=== PATIENT | female | born 1980 | race Caucasian/White ===

== ENCOUNTER 2023-04-24 08:57 | Inpatient (IN) | payer MEDICAID ==
[~2023-04-24] VITALS: Ht 160 cm; Wt 59.0 kg
[2023-04-24 09:00] VITALS: BP 125/74
--- NOTE | 2023-04-24 09:43 | NUR ---
X-Ray at bedside.
[2023-04-24] MEDS ORDERED: MORPHINE SULFATE 4 MG/ML SYR IVP ONE (10:05)
[2023-04-24] MEDS ORDERED: ONDANSETRON 4 MG/2 ML VIAL IVP ONE (10:05)
[2023-04-24 10:11] LABS: BASOPHILS # (AUTO) 0.1 K/uL (0.00-0.22); BASOPHILS % (AUTO) 0.6 % (0.0-2.0); EOSINOPHILS # (AUTO) 0.1 K/uL (0-0.4); EOSINOPHILS % (AUTO) 0.5 % (0.0-4.0); HEMATOCRIT 31.2 % (36-48); HEMOGLOBIN 10.1 g/dL (12.0-16.0); LYMPHOCYTES # (AUTO) 1.9 K/uL (2.5-16.5); LYMPHOCYTES % (AUTO) 15.4 % (20.5-51.1); MEAN CORPUSCULAR HEMOGLOBIN 27 pg (27-31); MEAN CORPUSCULAR HGB CONC 32 g/dL (33-37); MONOCYTES # (AUTO) 0.6 K/uL (0.8-1.0); NEUTROPHILS # (AUTO) 9.6 K/uL (1.8-7.7); NEUTROPHILS % (AUTO) 78.5 % (42.2-75.2); PLATELET COUNT (AUTO) 378 K/uL (140-450); RED CELL DISTRIBUTION WIDTH 16.1 % (11.6-13.7); WHITE BLOOD COUNT (AUTO) 12.2 K/uL (4.8-10.8)
--- NOTE | 2023-04-24 10:30 | NUR ---
Martita villarreal in ED - 04/24/23 at 1455 by MEDDM BIBA BLS TO ER BED 8
[2023-04-24 10:49] LABS: ANION GAP 11.4 (8-16); CARBON DIOXIDE 28.8 mmol/L (21-32); CREATININE 0.6 mg/dL (0.6-1.3); POTASSIUM 4.2 mmol/L (3.5-5.1); TOTAL BILIRUBIN 0.3 mg/dL (0.0-1.0)
[2023-04-24] MEDS ORDERED: NACL 0.9% 1,500 ML IV ONE (11:20)
[2023-04-24] MEDS ORDERED: ONDA4TAB12 PO (11:38)
[2023-04-24] MEDS ORDERED: HYDR25CA32 PO (11:38)
[2023-04-24] MEDS ORDERED: CLIN300C73 PO (11:38)
[2023-04-24] MEDS ORDERED: ESCI5TAB18 PO (11:38)
[2023-04-24] MEDS ORDERED: IBUP-2213 PO (11:38)
[2023-04-24] MEDS ORDERED: ACET-9525 PO (11:38)
[2023-04-24] MEDS ORDERED: cefTRIAXone 1,000 MG VIAL ONE (12:43)
[2023-04-24] MEDS: PIPERACILLIN/TAZOBACTAM 3.375 GM in DEXTROSE 5% 50 ML IV SCH ×2 (13:35→20:59)
[2023-04-24] MEDS ORDERED: ACETAMINOPHEN 325 MG TAB PO PRN (13:45)
[2023-04-24] MEDS ORDERED: ONDANSETRON 4 MG/2 ML VIAL IVP PRN (13:45)
--- NOTE | 2023-04-24 13:53 | NUR ---
PATIENT ARRIVED TO [facility]ST UNIT. PT IS AWAKE, AOX4. ABLE TO VERBALIZE NEEDS. RESPIRATIONS EVEN AND UNLABORED ON RA. SKIN WARM AND DRY. IV ON L F/A 20G, SL. PT ORIENTED TO UNIT, ROOM, RESTROOM AND POLICIES. VS: TEMP 99.8, PULSE 62, BP 114/57, O2 SATURATING AT 99% ON RA. ALL SAFETY PRECAUTIONS IN PLACE. CALL LIGHT WITHIN REACH.
--- NOTE | 2023-04-24 14:32 | NUR ---
Patient will be admitted to care of MD MONTELONGO. Admited to [facility]. Will go to room 126B. Belongings list completed. Report to TEJA COCHRAN.
[2023-04-24 16:00] VITALS: BP 141/64
[2023-04-24] MEDS: MORPHINE SULFATE 2 MG/ML SYR IVP PRN ×2 (16:21→21:18)
--- NOTE | 2023-04-24 19:29 | NUR ---
ENDORSED PT TO CNC OPERATOR NURSE FOR CONTINUITY OF CARE. PT IS STABLE.
--- NOTE | 2023-04-24 19:30 | NUR ---
RECEIVED PATIENT FROM DAY SHIFT NURSE TEJA FOR CONTINUITY OF CARE. PATIENT IS A&O X4. PATIENT IS ON ROOM AIR; BREATHING IS NORMAL WITH SYMMETRICAL RISE AND FALL OF CHEST. IV IS A 20G LFA, RUNNING NS 3ML TKO. PATIENT IS SLEEPING, LYING SUPINE. BED IS IN LOWEST POSITION, WHEELS LOCKED, CALL LIGHT IN PLACE. WILL CONTINUE TO OBSERVE PATIENT.
[2023-04-24 20:00] VITALS: BP 133/72
[2023-04-24] MEDS ORDERED: PIPERACILLIN/TAZOBACTAM 3.375 GM VIAL IV ONE (20:51)
--- NOTE | 2023-04-24 21:32 | NUR ---
ADMINISTERED 2100 IVPB TO PATIENT. MEDICATION ADMINISTERED SUCCESSFULLY WITHOUT ANY ISSUES WITH IV. PATIENT COMPLAINED OF 10/10 RIGHT LOWER LEG PAIN. CHECKED THE PATIENT'S LEG, NO VISIBLE SIGNS OF SWELLING OR REDNESS WERE PRESENT. PATIENT STATED PAIN WAS A 10/10 AND ASKED IF IT WAS TIME FOR ANOTHER DOSE OF PAIN MEDICATION. CHECKED PATIENT'S VITALS AND CHART; MORPHINE WAS APPROPRIATE TO GIVE. ADMINISTERED MEDICATION TO PATIENT. MEDICATION ADMINISTRATION WAS SUCCESSFUL WITH NO ISSUES WITH IV. PATIENT THANKED ME LAID BACK DOWN TO GO TO SLEEP. EMPTIED PATIENT'S COMMODE, WHICH CONTAINED URINE BUT NO BM, AND CLEANED BED ALTMAN. INSERTED NEW LINER INTO BEDPAN ON COMMODE. TURNED OUT LIGHT ON MY WAY OUT. WILL CONTINUE TO OBSERVE PATIENT.
--- NOTE | 2023-04-25 00:30 | NUR ---
PATIENT IS CURRENTLY SLEEPING. BREATHING IS NORMAL WITH SYMMETRICAL RISE AND FALL OF CHEST. WILL CONTINUE TO OBSERVE PATIENT.
[2023-04-25] MEDS: MORPHINE SULFATE 2 MG/ML SYR IVP PRN ×4 (03:26→20:13)
[2023-04-25 04:00] VITALS: BP 122/79
--- NOTE | 2023-04-25 04:07 | NUR ---
PATIENT WOKE UP AND REQUESTED PAIN MEDICATION FOR 10/10 RIGHT LOWER LEG PAIN. ASSESSED PATIENT'S VITALS AND CHART; MORPHINE WAS APPROPRIATE TO ADMINISTER. ADMINISTRATION OF MEDICATION WAS SUCCESSFUL WITH NO ISSUES WITH IV. PATIENT FELL BACK TO SLEEP A FEW MINUTES LATER. BREATHING IS NORMAL WITH SYMMETRICAL RISE AND FALL OF CHEST. WILL CONTINUE TO OBSERVE PATIENT.
--- NOTE | 2023-04-25 04:46 | NUR ---
WAS INFORMED BY POULTRY FARM WORKER THAT PATIENT REFUSED LABS STATING SHE WANTED HER BLOOD DRAWN LATER. LABS WERE NOT DRAWN FOR PATIENT.
[2023-04-25] MEDS ORDERED: PIPERACILLIN/TAZOBACTAM 3.375 GM VIAL IV ONE (04:57)
[2023-04-25] MEDS: PIPERACILLIN/TAZOBACTAM 3.375 GM in DEXTROSE 5% 50 ML IV SCH ×3 (05:05→20:13)
--- NOTE | 2023-04-25 06:18 | NUR ---
PATIENT IS SLEEPING. BREATHING IS NORMAL WITH SYMMETRICAL RISE AND FALL OF CHEST. WILL CONTINUE TO OBSERVE PATIENT.
--- NOTE | 2023-04-25 07:21 | NUR ---
ENDORSED TO DAY SHIFT NURSE TEJA FOR CONTINUITY OF CARE. PATIENT IS STABLE.
--- NOTE | 2023-04-25 08:00 | NUR ---
Patient's Plan of Care was discussed and reviewed with WIRE MILL OPERATOR:
[2023-04-25] MEDS: ESCITALOPRAM 20 MG TAB PO SCH (08:31)
[2023-04-25] MEDS: ENOXAPARIN 40 MG/0.4 ML SYR SUBQ SCH (08:33)
[2023-04-25] MEDS ORDERED: DEXTROSE 50% 50 ML SYR IVP PRN (08:45)
[2023-04-25] MEDS ORDERED: NON-FORMULARY ITEM (Escitalopram Oxalate (Escitalopram Oxalate) 1 TAB) PO SCH (09:00)
--- NOTE | 2023-04-25 09:21 | NUR ---
PATIENT HAS BEEN SCREENED AND CATEGORIZED MODERATE NUTRITION RISK. PATIENT WILL BE SEEN WITHIN 3-5 DAYS OF ADMISSION. / REVIEWED BY RICHIE ORR RD
[2023-04-25] MEDS: BLOOD GLUCOSE MONITORING 1 DEV DEV FS SCH ×4 (11:10→20:14)
[2023-04-25] MEDS: INSULIN LISPRO SLIDING SCALE 100 UNITS/ML VIAL SUBQ PRN ×2 (11:19→20:26)
[2023-04-25 14:22] LABS: BASOPHILS # (AUTO) 0.1 K/uL (0.00-0.22); BASOPHILS % (AUTO) 0.7 % (0.0-2.0); EOSINOPHILS # (AUTO) 0.1 K/uL (0-0.4); HEMOGLOBIN 10.3 g/dL (12.0-16.0); LYMPHOCYTES % (AUTO) 18.4 % (20.5-51.1); MEAN CORPUSCULAR HEMOGLOBIN 27 pg (27-31); MEAN CORPUSCULAR HGB CONC 33 g/dL (33-37); MEAN CORPUSCULAR VOLUME 81.6 fL (80-94); MONOCYTES # (AUTO) 0.5 K/uL (0.8-1.0); MONOCYTES % (AUTO) 4.9 % (1.7-9.3); NEUTROPHILS # (AUTO) 8.1 K/uL (1.8-7.7); PLATELET COUNT (AUTO) 385 K/uL (140-450); WHITE BLOOD COUNT (AUTO) 10.9 K/uL (4.8-10.8)
[2023-04-25 14:45] LABS: MAGNESIUM 1.9 mg/dL (1.8-2.4); PHOSPHORUS 3.8 mg/dL (2.5-4.9)
[2023-04-25] MEDS ORDERED: ONDANSETRON 4 MG/2 ML VIAL IVP PRN (16:50)
[2023-04-25] MEDS ORDERED: HYDROmorphone 1 MG/ML AMP IVP PRN (16:50)
[2023-04-25] MEDS ORDERED: BUPIVACAINE-MPF 0.5% 30 ML VIAL INJ ONE (17:05)
[2023-04-25] MEDS ORDERED: PROPOFOL 200 MG/20 ML VIAL IV ONE (17:33)
[2023-04-25] MEDS ORDERED: fentaNYL citrate 0.05 MG/ML VIAL ONE (17:33)
[2023-04-25] MEDS ORDERED: ePHEDrine 50 MG/ML VIAL ONE (17:38)
[2023-04-25] MEDS ORDERED: ONDANSETRON 4 MG/2 ML VIAL ONE (17:40)
[2023-04-25] MEDS ORDERED: HYDROGEN PEROXIDE 3% 240 ML BTL TP ONE (17:41)
--- NOTE | 2023-04-25 19:33 | NUR ---
ENDORSED PT TO IMPORT COORDINATOR NURSE FOR CONTINUITY OF CARE.
--- NOTE | 2023-04-25 19:34 | NUR ---
RECEIVED REPORT FROM DAYSCARLOTTA RN FOR CONTINUITY OF CARE. PT JUST GOT BACK FROM SURGERY. PT IS AWAKE AND ALERT. COMPLAINING OF RIGHT FOOT PAIN 10/10. VITAL SIGNS TAKEN AND STABLE. POC DISCUSSED. WILL CONTINUE TO MONITOR THE PT.
[2023-04-25 20:00] VITALS: BP 132/80
--- NOTE | 2023-04-26 | NUR ---
OBSERVED PT. PT IS SLEEPING COMFORTABLY IN BED. NOT IN ANY DISTRESS. BREATHING EVEN AND UNLABORED. WILL CONTINUE TO MONITOR THE PT.
[2023-04-26] MEDS: MORPHINE SULFATE 2 MG/ML SYR IVP PRN ×6 (01:57→23:49)
--- NOTE | 2023-04-26 01:57 | NUR ---
PT CALLED COMPLAINING OF PAIN 10/10 ON RIGHT LOWER LEG. MORPHINE WAS GIVEN. NO OTHER COMPLAINS. PT JUST HAD USED COMMODE WAS CLEANED AND CHANGED. SAFETY MEASURES TAKEN. WILL CONTINUE TO MONITOR THE PT.
[2023-04-26 04:00] VITALS: BP 132/80
--- NOTE | 2023-04-26 04:00 | NUR ---
VITAL SIGNS TAKEN AND STABLE. PT IS RESTING IN BED. NOT IN ANY DISTRESS. CALL LIGHT WITHIN REACH. WILL CONTINUE TO MONITOR THE PT.
[2023-04-26] MEDS: HYDROcodone/APAP 5/325 MG 1 TAB TAB PO PRN ×4 (05:06→21:35)
[2023-04-26] MEDS: PIPERACILLIN/TAZOBACTAM 3.375 GM in DEXTROSE 5% 50 ML IV SCH ×3 (05:07→20:56)
[2023-04-26 05:32] LABS: BASOPHILS % (AUTO) 0.5 % (0.0-2.0); EOSINOPHILS # (AUTO) 0.1 K/uL (0-0.4); HEMATOCRIT 29.8 % (36-48); HEMOGLOBIN 9.8 g/dL (12.0-16.0); LYMPHOCYTES # (AUTO) 1.6 K/uL (2.5-16.5); LYMPHOCYTES % (AUTO) 19.1 % (20.5-51.1); MEAN CORPUSCULAR HEMOGLOBIN 27 pg (27-31); MEAN CORPUSCULAR HGB CONC 33 g/dL (33-37); MEAN CORPUSCULAR VOLUME 81.6 fL (80-94); MONOCYTES # (AUTO) 0.4 K/uL (0.8-1.0); MONOCYTES % (AUTO) 4.7 % (1.7-9.3); NEUTROPHILS # (AUTO) 6.3 K/uL (1.8-7.7); NEUTROPHILS % (AUTO) 74.7 % (42.2-75.2); PLATELET COUNT (AUTO) 407 K/uL (140-450); RED BLOOD CELL COUNT(AUTO) 3.65 MIL/uL (4.20-5.40); RED CELL DISTRIBUTION WIDTH 16.2 % (11.6-13.7); WHITE BLOOD COUNT (AUTO) 8.5 K/uL (4.8-10.8)
[2023-04-26 06:01] LABS: ANION GAP 11.2 (8-16); CARBON DIOXIDE 28.7 mmol/L (21-32); CREATININE 0.7 mg/dL (0.6-1.3); POTASSIUM 4.9 mmol/L (3.5-5.1)
[2023-04-26 06:04] LABS: MAGNESIUM 1.7 mg/dL (1.8-2.4)
[2023-04-26] MEDS: BLOOD GLUCOSE MONITORING 1 DEV DEV FS SCH ×4 (06:31→20:57)
[2023-04-26] MEDS: INSULIN LISPRO SLIDING SCALE 100 UNITS/ML VIAL SUBQ PRN ×4 (06:38→20:57)
--- NOTE | 2023-04-26 07:11 | NUR ---
ENDORSED PT TO DAY SHIFT RN FOR CONTINUITY OF CARE. PT IS STABLE.
[2023-04-26 08:00] VITALS: BP 118/71
[2023-04-26] MEDS: ESCITALOPRAM 20 MG TAB PO SCH (09:29)
[2023-04-26] MEDS ORDERED: MAGNESIUM OXIDE 400 MG TAB PO SCH (09:30)
[2023-04-26] MEDS: ENOXAPARIN 40 MG/0.4 ML SYR SUBQ SCH (09:34)
[2023-04-26] MEDS ORDERED: DESFLURANE 240 ML BTL INH ONE (09:35)
--- NOTE | 2023-04-26 14:00 | NUR ---
RECEIVED ORDER FOR PATIENT TO GET HOME HEALTH FOR IV. FAXED ALL PAPERWORK TO [facility] . CALLED [facility] BUT THE SAID THAT THE PATIENT IS STILL UNDER REVIEW FROM PHARMACIST TO SEE IF PATIENT HAS ANY CO PAYS, AND THEY WILL BE CONTACTING ME. BERNARD NON FOOD RECEIVING CLERK TO FOLLOW UP. Addendum: 04/26/23 at 1531 by KEVIN ROSSI CM CALLIE AT [facility] SAID THAT THEY WOULD BE ABLE TO DO TEACHING BUT IT WOULD HAVE TO BE DONE HERE AT THE HOSPITAL AND NEED TO BE APPROVED BY MANAGEMENT FIRST AND WILL BE CONTACTING THE PATIENT. Addendum: 04/26/23 at 1646 by Ofe Nunez RN BERNARD PLANNING GRE INSTRUCTOR CALLED [facility], [facility], [facility] ALL STATED WONT'S ACCEPT INSURANCE RECEIVED A CALL FROM [facility] SPOKE WITH CALLIE STATED WILL DELIVER THE ABX TO PT'S HOME AND WILL SEND A NURSE TO TEACH PATIENT HOW TO ADMINISTER THE MEDS. CM ARRANGED FOR PICC LINE DRESSING TO BE CHANGED EVERY SATURDAY AT THE HOSPITAL. PATIENT AGREED NOTIFIED ADZY CHARGE NURSE. PT WILL BE DC TODAY.
--- NOTE | 2023-04-26 15:47 | NUR ---
DC PLANNING ASSESSMENT COMPLETE PLEASE REFER TO ASSESSMENT FOR ADDITIONAL DETAILS PT REPORTS DC PLAN IS TO RETURN HOME WITH FRIEND PROVIDING TRANSPORTATION, WHEN MEDICALLY CLEARED BY PHYSICIAN. DC BASEBOARD HEATING INSTALLER CURRENTLY WORKING ON IDENTIFYING HH AGENCY. Addendum: 04/26/23 at 1548 by Ronald De Paz SS Amended: Links added.
[2023-04-26 16:00] VITALS: BP 100/68
--- NOTE | 2023-04-26 19:27 | NUR ---
ENDORSED TO BUILDING SUPERVISOR NURSE FOR CONTINUITY OF CARE. PATIENT IS STABLE.
--- NOTE | 2023-04-26 19:31 | NUR ---
RECEIVED REPORT FROM DAY SHIFT RN KATELYN FOR CONTINUITY OF CARE. PT IS AWAKE AND ALERT. PT IS COMPLAINING OF 10/10 PAIN ON RIGHT FOOT. PRN MORPHINE WAS GIVEN. NO OTHER COMPLAINS. POC DISCUSSED. WILL CONTINUE TO MONITOR THE PT.
--- NOTE | 2023-04-26 21:35 | NUR ---
PT COMPLAINING OF RIGHT FOOT PAIN 8. NORCO WAS GIVEN. NO OTHER COMPLAINS.
--- NOTE | 2023-04-27 00:40 | NUR ---
OBSERVED PT. PT IS SLEEPING COMFORTABLY IN BED. NOT IN ANY DISTRESS. BREATHING EVEN AND UNLABORED. WILL CONTINUE TO MONITOR THE PT.
[2023-04-27] MEDS: HYDROcodone/APAP 5/325 MG 1 TAB TAB PO PRN (01:47)
[2023-04-27 04:00] VITALS: BP 101/67
[2023-04-27] MEDS: PIPERACILLIN/TAZOBACTAM 3.375 GM in DEXTROSE 5% 50 ML IV SCH ×2 (05:15→12:21)
[2023-04-27] MEDS: MORPHINE SULFATE 2 MG/ML SYR IVP PRN ×3 (05:15→13:21)
[2023-04-27 05:54] LABS: BASOPHILS # (AUTO) 0.1 K/uL (0.00-0.22); BASOPHILS % (AUTO) 0.7 % (0.0-2.0); EOSINOPHILS # (AUTO) 0.1 K/uL (0-0.4); EOSINOPHILS % (AUTO) 0.6 % (0.0-4.0); HEMATOCRIT 28.4 % (36-48); HEMOGLOBIN 9.2 g/dL (12.0-16.0); LYMPHOCYTES % (AUTO) 15.1 % (20.5-51.1); MEAN CORPUSCULAR HEMOGLOBIN 27 pg (27-31); MEAN CORPUSCULAR HGB CONC 32 g/dL (33-37); MEAN CORPUSCULAR VOLUME 82.2 fL (80-94); MONOCYTES # (AUTO) 0.7 K/uL (0.8-1.0); MONOCYTES % (AUTO) 5.2 % (1.7-9.3); NEUTROPHILS # (AUTO) 10.3 K/uL (1.8-7.7); NEUTROPHILS % (AUTO) 78.4 % (42.2-75.2); PLATELET COUNT (AUTO) 372 K/uL (140-450); RED BLOOD CELL COUNT(AUTO) 3.45 MIL/uL (4.20-5.40); RED CELL DISTRIBUTION WIDTH 15.9 % (11.6-13.7); WHITE BLOOD COUNT (AUTO) 13.2 K/uL (4.8-10.8)
[2023-04-27] MEDS: INSULIN LISPRO SLIDING SCALE 100 UNITS/ML VIAL SUBQ PRN ×2 (06:38→12:33)
[2023-04-27] MEDS: BLOOD GLUCOSE MONITORING 1 DEV DEV FS SCH ×2 (06:39→12:30)
--- NOTE | 2023-04-27 07:15 | NUR ---
ENDORSED PT TO DAY SHIFT RN FOR CONTINUITY OF CARE. PT IS STABLE.
[2023-04-27 07:21] LABS: CARBON DIOXIDE 29.7 mmol/L (21-32); CREATININE 0.6 mg/dL (0.6-1.3); POTASSIUM 4.7 mmol/L (3.5-5.1)
[2023-04-27 07:59] LABS: MAGNESIUM 1.5 mg/dL (1.8-2.4); PHOSPHORUS 4.3 mg/dL (2.5-4.9)
[2023-04-27] MEDS: ESCITALOPRAM 20 MG TAB PO SCH (08:56)
[2023-04-27] MEDS: ENOXAPARIN 40 MG/0.4 ML SYR SUBQ SCH (08:57)
== END 2023-04-27 17:05 | disposition home health service (06) | DRG 711 ==
LOC: MED 08:57 → MTU 13:42 → MMU 14:00
PROVIDERS: ADMIT Internal Medicine; ATTEND Internal Medicine
PROC: 0Y6M0ZC Detachment at Right Foot, Partial 3rd Ray, Open Approach (ICD-10-PCS; 2023-04-25)
PROC: 0Y6M0ZD Detachment at Right Foot, Partial 4th Ray, Open Approach (ICD-10-PCS; 2023-04-25)
PROC: 0Y6M0ZF Detachment at Right Foot, Partial 5th Ray, Open Approach (ICD-10-PCS; 2023-04-25)
PROC: 0Q9N0ZX Drainage of Right Metatarsal, Open Approach, Diagnostic (ICD-10-PCS; 2023-04-25)
PROC: 0Y6M0ZB Detachment at Right Foot, Partial 2nd Ray, Open Approach (ICD-10-PCS; principal; 2023-04-25 16:50)
DX: T81.49XA Infection following a procedure, other surgical site, initial encounter (principal); E11.52 Type 2 diabetes mellitus with diabetic peripheral angiopathy with gangrene; E44.0 Moderate protein-calorie malnutrition; E11.621 Type 2 diabetes mellitus with foot ulcer; E87.1 Hypo-osmolality and hyponatremia; L97.516 Non-pressure chronic ulcer of other part of right foot with bone involvement without evidence of necrosis; L03.031 Cellulitis of right toe; E11.69 Type 2 diabetes mellitus with other specified complication; F41.9 Anxiety disorder, unspecified; I10 Essential (primary) hypertension; Z66 Do not resuscitate; Y83.8 Other surgical procedures as the cause of abnormal reaction of the patient, or of later complication, without mention of misadventure at the time of the procedure; E83.42 Hypomagnesemia; Z20.822 Contact with and (suspected) exposure to COVID-19; Z87.891 Personal history of nicotine dependence; Z68.23 Body mass index [BMI] 23.0-23.9, adult; Y92.89 Other specified places as the place of occurrence of the external cause; Z98.891 History of uterine scar from previous surgery
CPT/HCPCS: 36415; 71045; 73630; 80048; 80053; 82948; 83605; 83735; 84100; 84703; 85025; 87040; 87070; 87075; 87081; 87186; 87205; 87635-QW; 93970; 96365; 96375; 99285; J0696; J1650; J1815; J2270; J2405; J2543; J2704; J3010; J3490; J7030; J7060; Q0092

== ENCOUNTER 2023-05-08 09:30 | Inpatient (IN) | payer MEDICAID ==
[~2023-05-08] VITALS: Ht 157.5 cm; Wt 53.5 kg
[~2023-05-08 09:30] MED LIST: ACET-9525 PO; HYDR25CA32 PO; IBUP-2213 PO
[2023-05-08 09:32] VITALS: BP 90/69
--- NOTE | 2023-05-08 09:32 | NUR ---
PT PLACED IN BED 06 AT THIS TIME
[2023-05-08] MEDS ORDERED: MORPHINE SULFATE 4 MG/ML SYR IVP ONE (10:00)
[2023-05-08] MEDS ORDERED: ONDANSETRON 4 MG/2 ML VIAL IVP ONE (10:00)
[2023-05-08] MEDS ORDERED: NACL 0.9% 2,000 ML IV ONE (10:00)
[2023-05-08] MEDS ORDERED: PANTOPRAZOLE 40 MG INJ VIAL IVP ONE (10:00)
[2023-05-08] MEDS ORDERED: ONDANSETRON 4 MG/2 ML VIAL ONE (10:02)
[2023-05-08] MEDS ORDERED: MORPHINE SULFATE 4 MG/ML SYR ONE (10:02)
[2023-05-08] MEDS ORDERED: PIPERACILLIN/TAZOBACTAM 3.375 GM in DEXTROSE 5% 50 ML IV ONE (10:55)
[2023-05-08] MEDS ORDERED: VANCOMYCIN 1,000 MG in DEXTROSE 5% 250 ML IV ONE (10:55)
[2023-05-08] MEDS ORDERED: PIPERACILLIN/TAZOBACTAM 3.375 GM VIAL IV ONE (11:11)
[2023-05-08 11:13] LABS: BASOPHILS % (AUTO) 0.2 % (0.0-2.0); EOSINOPHILS % (AUTO) 0.2 % (0.0-4.0); HEMATOCRIT 35.7 % (36-48); HEMOGLOBIN 11.7 g/dL (12.0-16.0); LYMPHOCYTES # (AUTO) 1.3 K/uL (2.5-16.5); LYMPHOCYTES % (AUTO) 11.3 % (20.5-51.1); MEAN CORPUSCULAR HEMOGLOBIN 26 pg (27-31); MEAN CORPUSCULAR HGB CONC 33 g/dL (33-37); MEAN CORPUSCULAR VOLUME 79.4 fL (80-94); MONOCYTES # (AUTO) 0.5 K/uL (0.8-1.0); MONOCYTES % (AUTO) 4.1 % (1.7-9.3); NEUTROPHILS # (AUTO) 9.9 K/uL (1.8-7.7); NEUTROPHILS % (AUTO) 84.2 % (42.2-75.2); PLATELET COUNT (AUTO) 377 K/uL (140-450); RED BLOOD CELL COUNT(AUTO) 4.49 MIL/uL (4.20-5.40); RED CELL DISTRIBUTION WIDTH 17.1 % (11.6-13.7); WHITE BLOOD COUNT (AUTO) 11.8 K/uL (4.8-10.8)
[2023-05-08 11:28] LABS: PROTHROMBIN TIME 10.6 secs (10.8-13.4)
[2023-05-08 11:34] LABS: ALBUMIN 3.3 g/dL (3.4-5.0); CREATININE 0.8 mg/dL (0.6-1.3); TOTAL BILIRUBIN 0.4 mg/dL (0.0-1.0)
[2023-05-08] MEDS ORDERED: VANCOMYCIN 1,000 MG VIAL ONE (11:58)
[2023-05-08] MEDS ORDERED: DOCUSATE SODIUM 100 MG GELCAP PO PRN (13:20)
[2023-05-08] MEDS ORDERED: ZOLPIDEM 5 MG TAB PO PRN (13:20)
[2023-05-08] MEDS ORDERED: ACETAMINOPHEN 325 MG TAB PO PRN (13:20)
[2023-05-08] MEDS ORDERED: guaiFENesin DM 200/20 MG-10 ML 10 ML UDC PO PRN (13:20)
[2023-05-08] MEDS ORDERED: ONDANSETRON 4 MG/2 ML VIAL IM/IVP PRN (13:20)
[2023-05-08] MEDS ORDERED: POTASSIUM CHLORIDE 10 MEQ TABER PO PRN (13:20)
[2023-05-08] MEDS ORDERED: DEXTROSE 50% 50 ML SYR IVP PRN (13:25)
[2023-05-08] MEDS ORDERED: APIX5TAB PO (14:44)
[2023-05-08] MEDS ORDERED: METF-352 PO (14:44)
--- NOTE | 2023-05-08 14:49 | NUR ---
Pt prepared for admission. Pictures taken of amputation site. Slight purulent drainage noted at this time. Monitoring status.
--- NOTE | 2023-05-08 15:07 | NUR ---
Report given to DIMAS Solano . Pt to go to room 106B to Med/Surg. admited by Dr. Nieto. Pt taken with all belongings and transported in stable condition. No distress noted at this time.
--- NOTE | 2023-05-08 15:30 | NUR ---
RECEIVED PT FROM ER, STABLE VS, WITH IV SITE L WRIST G 20, ORIENTED TO THE NEW SURROUNDING, CALL LIGHT, BED MECHANICS, TV AND BEDSIDE COMMODE. CALL LIGHT WITHIN REACH.
--- NOTE | 2023-05-08 15:51 | NUR ---
DC PLANNIN YRS OLD FEMALE PATIENT WAS ADMITTED FROM HOME WITH A DX OF OSTEOMYELITIS ,R/O GI BLEED . PATIENT HAS A HX OF DM, ANXIETY AND TRANSMETATARSAL RT FOOT AMPUTATION . FOOT XRAY SHOWED OSTEOMYELITIS INVOLVING THE 1ST REMNANT METATARSAL BONE AND PERIPHERAL VASCULAR DISEASE. ADMINISTERED IVF, IV ABX VANCOMYCIN AND ZOSYN AND CONTINUED HOME MEDS. CONSULTED WITH GI . DC PLAN TO GO HOME WHEN STABLE CM TO FOLLOW Addendum: 05/13/23 at 1602 by Ofe Nunez RN DC PLANNING: SCHEDULED FOR A PROCEDURE TODAY WITH PODIATRY FOR REMOVAL OF NECROTIC SOFT TISSUE AND BONE AND POSSIBLE ANKLE AMPUTATION. CONTINUED IV ABX ZOSYN. DC PLAN TO GO HOME WITH HOME HEALTH VS SNF. CM TO FOLLOW Addendum: 05/14/23 at 1423 by KEVIN ROSSI CM RECEIVED ORDER FOR PATIENT TO GO TO SNF FOR IV ABX. FAXED ALL PAPERWORK TO [facility], VIKASH MOREIRA, [facility], AND [facility]. VIKASH MOREIRA DECLINED. SPOKE WITH SERGIO FROM [facility] LOCATED AT [address] [address].PATIENT WILL BE GOING TO ROOM TO [address] UNDER DR HUBBARD. AUTH WAS GIVEN TO SERGIO FROM [facility]. TRANSPORTATION ARRANGED WITH CALL THE CAR WITH A 1800 [address] SANDER TIME. TRANSPORT CONFIRMATION #[id number]. NURSE ADZE AND PATIENT AWARE OF THE ABOVE INFORMATION
[2023-05-08 15:59] LABS: CHOL/HDL RATIO 4.8 (1-4.5); FREE T4 (FREE THYROXINE) 1.3 ng/dL (0.76-1.46); MAGNESIUM 1.6 mg/dL (1.8-2.4); PHOSPHORUS 3.2 mg/dL (2.5-4.9); THYROID STIMULATING HORMONE 4.61 uIU/mL (0.34-3.74)
[2023-05-08] MEDS: HYDROcodone/APAP 7.5/325 MG 1 TAB PO PRN (16:32)
[2023-05-08] MEDS: DEXT 5% /NACL 0.9% 1,000 ML IV SCH ×2 (16:33→23:20)
[2023-05-08] MEDS: INSULIN LISPRO SLIDING SCALE 100 UNITS/ML VIAL SUBQ PRN ×2 (17:11→20:31)
[2023-05-08] MEDS: BLOOD GLUCOSE MONITORING 1 DEV DEV FS SCH ×2 (17:13→20:34)
[2023-05-08] MEDS: PIPERACILLIN/TAZOBACTAM 3.375 GM in DEXTROSE 5% 50 ML IV SCH ×2 (18:42→23:22)
[2023-05-08] MEDS: MORPHINE SULFATE 2 MG/ML SYR IVP PRN ×2 (18:44→23:06)
--- NOTE | 2023-05-08 19:20 | NUR ---
GAVE REPORT TO PHOTOGRAPHY SALES ASSOCIATE NURSE FOR CONTINUITY OF CARE. PT STABLE, CALL LIGHT WITHIN REACH.
--- NOTE | 2023-05-08 19:21 | NUR ---
PATIENT IN BED RESTING COMFORTABLY. NO COMPLAINTS OF PAIN. NO DISTRESS ON ROOM AIR. IVF INFUSING ORDERED. CALL LIGHT IN REACH. SAFETY MEASURES IN PLACE.
[2023-05-08 20:00] VITALS: BP 94/58
[2023-05-08] MEDS ORDERED: MAGNESIUM OXIDE 400 MG TAB PO SCH (20:00)
[2023-05-09] MEDS: DEXT 5% /NACL 0.9% 1,000 ML IV SCH ×3 (03:30→19:20)
[2023-05-09] MEDS: MORPHINE SULFATE 2 MG/ML SYR IVP PRN ×2 (03:43→08:06)
[2023-05-09 04:00] VITALS: BP 102/56
[2023-05-09] MEDS: PIPERACILLIN/TAZOBACTAM 3.375 GM in DEXTROSE 5% 50 ML IV SCH ×3 (06:06→17:54)
[2023-05-09] MEDS: BLOOD GLUCOSE MONITORING 1 DEV DEV FS SCH ×4 (06:39→20:13)
[2023-05-09] MEDS: INSULIN LISPRO SLIDING SCALE 100 UNITS/ML VIAL SUBQ PRN ×3 (06:39→20:12)
[2023-05-09] MEDS: HYDROcodone/APAP 7.5/325 MG 1 TAB PO PRN ×3 (06:52→20:10)
--- NOTE | 2023-05-09 07:10 | NUR ---
RECEIVED REPORT FROM AUTOMATION LEAD NURSE FOR CONTINUITY OF CARE. PT STABLE AT THIS TIME.
--- NOTE | 2023-05-09 07:28 | NUR ---
GAVE BEDSIDE REPORT TO NURSE ZEPEDA FOR CONTINUITY OF CARE.
[2023-05-09 08:00] VITALS: BP 104/64
[2023-05-09] MEDS: MAGNESIUM OXIDE 400 MG TAB PO SCH (08:04)
[2023-05-09] MEDS: PANTOPRAZOLE 40 MG TABEC PO SCH (08:05)
--- NOTE | 2023-05-09 08:30 | NUR ---
PT REFUSED TO ALLOW FOREIGN BANKNOTE TELLER TRADER TO TRY MULTIPLE TIMES TO GET HER MORNING LABS.
--- NOTE | 2023-05-09 08:58 | NUR ---
PATIENT HAS BEEN SCREENED AND CATEGORIZED HIGH NUTRITION RISK. PATIENT WILL BE SEEN WITHIN 1-2 DAYS OF ADMISSION. 05/09/23-05/10/[address]
[2023-05-09] MEDS: MORPHINE SULFATE 4 MG/ML SYR IVP PRN ×2 (12:14→16:35)
--- NOTE | 2023-05-09 14:36 | NUR ---
05/09/23 RD INITIAL ASSESSMENT COMPLETED PLEASE REFER TO NUTRITION ASSESSMENT UNDER CARE ACTIVITY FOR ESTIMATED NUTRITIONAL NEEDS. [facility]. [facility]. 2. RD RECOMMENDS PROSOURCE BID TO HELP WITH WOUND, THIS WILL PROVIDE 120KCALS AND 30 GRAMS OF PROTEIN. 3. RD TO FOLLOW-UP 3-5 DAYS, MODERATE RISK OREN QUIROGA RD
[2023-05-09 16:00] VITALS: BP 115/69
[2023-05-09 17:14] LABS: BASOPHILS % (AUTO) 0.4 % (0.0-2.0); EOSINOPHILS # (AUTO) 0.1 K/uL (0-0.4); EOSINOPHILS % (AUTO) 0.8 % (0.0-4.0); HEMATOCRIT 26.6 % (36-48); HEMOGLOBIN 8.7 g/dL (12.0-16.0); LYMPHOCYTES # (AUTO) 1.7 K/uL (2.5-16.5); LYMPHOCYTES % (AUTO) 20.5 % (20.5-51.1); MEAN CORPUSCULAR HEMOGLOBIN 26 pg (27-31); MEAN CORPUSCULAR HGB CONC 33 g/dL (33-37); MEAN CORPUSCULAR VOLUME 79.5 fL (80-94); MONOCYTES # (AUTO) 0.5 K/uL (0.8-1.0); MONOCYTES % (AUTO) 5.4 % (1.7-9.3); NEUTROPHILS # (AUTO) 6.1 K/uL (1.8-7.7); NEUTROPHILS % (AUTO) 72.9 % (42.2-75.2); PLATELET COUNT (AUTO) 259 K/uL (140-450); RED BLOOD CELL COUNT(AUTO) 3.34 MIL/uL (4.20-5.40); RED CELL DISTRIBUTION WIDTH 16.8 % (11.6-13.7); WHITE BLOOD COUNT (AUTO) 8.4 K/uL (4.8-10.8)
[2023-05-09 17:21] LABS: ANION GAP 8.7 (8-16); CARBON DIOXIDE 28.6 mmol/L (21-32); CREATININE 0.6 mg/dL (0.6-1.3); POTASSIUM 4.3 mmol/L (3.5-5.1)
--- NOTE | 2023-05-09 19:30 | NUR ---
RECEIVED REPORT FROM DAY SHIFT RN FOR CONTINUITY OF CARE. PT IS AWAKE. NOT IN ANY DISTRESS. PT COMPLAINS OF RIGHT FOOT PAIN. NO OTHER ISSUES. PT HAS LEFT WRIST 20 GAUGE RUNNING D5 NS 100CC/HR. POC DISCUSSED. WILL CONTINUE TO MONITOR THE PT.
--- NOTE | 2023-05-09 19:37 | NUR ---
ENDORSED PT TO RETURN AGENT AIRPORT NURSE FOR CONTINUITY OF CARE. PT STABLE.
[2023-05-09 20:00] VITALS: BP 100/57
--- NOTE | 2023-05-09 23:15 | NUR ---
OBSERVED PT. PT IS SLEEPING COMFORTABLY IN BED. NOT IN ANY DISTRESS. BREATHING EVEN AND UNLABORED. IVF RUNNING PER MD ORDER. WILL CONTINUE TO MONITOR THE PT.
[2023-05-10] MEDS: DEXT 5% /NACL 0.9% 1,000 ML IV SCH ×2 (00:18→15:20)
[2023-05-10] MEDS: PIPERACILLIN/TAZOBACTAM 3.375 GM in DEXTROSE 5% 50 ML IV SCH ×6 (00:18→23:38)
[2023-05-10] MEDS: MORPHINE SULFATE 4 MG/ML SYR IVP PRN ×5 (00:21→20:36)
--- NOTE | 2023-05-10 00:21 | NUR ---
SCHEDULE ABX GIVEN. NO ADVERSE REACTION NOTED. PT COMPLAIN OF A LOT OF PAIN ON RIGHT FOOT. MORPHINE WAS GIVEN. NO OTHER COMPLAINS. WILL CONTINUE TO MONITOR THE PT.
[2023-05-10 04:00] VITALS: BP 102/68
[2023-05-10 06:07] LABS: T4 (THYROXINE) 9.7 ug/dL (4.5-12.0)
[2023-05-10] MEDS: BLOOD GLUCOSE MONITORING 1 DEV DEV FS SCH ×4 (06:42→20:41)
[2023-05-10] MEDS: INSULIN LISPRO SLIDING SCALE 100 UNITS/ML VIAL SUBQ PRN ×2 (06:42→20:41)
--- NOTE | 2023-05-10 07:31 | NUR ---
ENDORSED PT TO DAY SHIFT NURSE FOR CONTINUITY OF CARE. PT IS STABLE.
--- NOTE | 2023-05-10 09:00 | NUR ---
WOUND CONSULT NOT DONE. PT ADMITTED WITH PVD S/P AMPUTATION AND SEEN BY IN HOUSE PODIATRY DR. MALLOY WITH ORDER PLACED.
[2023-05-10] MEDS: MAGNESIUM OXIDE 400 MG TAB PO SCH (09:41)
[2023-05-10] MEDS: PANTOPRAZOLE 40 MG TABEC PO SCH (09:41)
--- NOTE | 2023-05-10 12:00 | NUR ---
PT IV INFILTRATED. REMOVED IV, ATTEMPTED TO START NEW IV. PT GOT AGITATED, REQUESTED NEW NURSE TO START IV. NEW NURSE STARTED IV, PT MOVED AND IV WAS PULLED OUT. PT BECAME MORE AGITATED AND REFUSED ANOTHER IV ATTEMPT. EDUCATION ON IV AND IV ABX PROVIDED. PT STILL REFUSE. PT THEN WANTED TO SPEAK WITH CHEF INSTRUCTOR. CHEF INSTRUCTOR WAS ABLE TO CONVINCE PT TO HAVE NEW IV PLACED - BUT WANTED TO HAVE IT PLACED LATER. WILL ATTEMPT TO PLACE AGAIN LATER.
[2023-05-10 12:32] LABS: ANION GAP 10.3 (8-16); CREATININE 0.6 mg/dL (0.6-1.3); POTASSIUM 4.3 mmol/L (3.5-5.1)
[2023-05-10 13:01] LABS: BASOPHILS % (AUTO) 0.5 % (0.0-2.0); EOSINOPHILS # (AUTO) 0.1 K/uL (0-0.4); EOSINOPHILS % (AUTO) 0.9 % (0.0-4.0); HEMATOCRIT 26.7 % (36-48); HEMOGLOBIN 8.8 g/dL (12.0-16.0); LYMPHOCYTES # (AUTO) 1.7 K/uL (2.5-16.5); LYMPHOCYTES % (AUTO) 20.3 % (20.5-51.1); MEAN CORPUSCULAR HEMOGLOBIN 26 pg (27-31); MEAN CORPUSCULAR HGB CONC 33 g/dL (33-37); MEAN CORPUSCULAR VOLUME 79.2 fL (80-94); MONOCYTES # (AUTO) 0.4 K/uL (0.8-1.0); MONOCYTES % (AUTO) 5.3 % (1.7-9.3); PLATELET COUNT (AUTO) 267 K/uL (140-450); RED BLOOD CELL COUNT(AUTO) 3.37 MIL/uL (4.20-5.40); RED CELL DISTRIBUTION WIDTH 16.5 % (11.6-13.7); WHITE BLOOD COUNT (AUTO) 8.2 K/uL (4.8-10.8)
--- NOTE | 2023-05-10 14:00 | NUR ---
PT STILL AGITATED. REFUSING IV ATTEMPT. REFUSING WOUND CARE/WOUND ASSESSMENT. EDUCATION ON WOUND CARE/ASSESSMENT PROVIDED. PT STILL REFUSE.
[2023-05-10] MEDS: HYDROcodone/APAP 7.5/325 MG 1 TAB PO PRN ×2 (15:55→22:10)
--- NOTE | 2023-05-10 19:30 | NUR ---
NEW IV WAS PLACED IN RIGHT AC 22G. PT NOW LESS AGITATED. ENDORSED TO NIGHTSHIFT NURSE FOR CONTINUITY OF CARE.
--- NOTE | 2023-05-10 19:35 | NUR ---
RECEIVED REPORT FROM DAY SHIFT RN FOR CONTINUITY OF CARE. PT IS AWAKE AND ALERT. RESTING IN BED. NOT IN ANY DISTRESS. POC DISCUSSED. WILL CONTINUE TO MONITOR THE PT.
[2023-05-10 20:00] VITALS: BP 119/69
[2023-05-11] MEDS: MORPHINE SULFATE 4 MG/ML SYR IVP PRN ×5 (00:23→20:34)
--- NOTE | 2023-05-11 00:23 | NUR ---
PT COMPLAINED OF 10/10 PAIN ON RIGHT FOOT. MORPHINE WAS GIVEN. NO OTHER COMPLAINS. WILL CONTINUE TO MONITOR THE PT.
[2023-05-11] MEDS: DEXT 5% /NACL 0.9% 1,000 ML IV SCH ×3 (01:35→21:20)
[2023-05-11 04:00] VITALS: BP 146/57
[2023-05-11] MEDS: PIPERACILLIN/TAZOBACTAM 3.375 GM in DEXTROSE 5% 50 ML IV SCH ×3 (06:18→18:52)
[2023-05-11] MEDS: BLOOD GLUCOSE MONITORING 1 DEV DEV FS SCH ×4 (06:23→20:41)
[2023-05-11] MEDS: INSULIN LISPRO SLIDING SCALE 100 UNITS/ML VIAL SUBQ PRN ×3 (06:23→20:39)
[2023-05-11 06:54] LABS: BASOPHILS % (AUTO) 0.3 % (0.0-2.0); EOSINOPHILS # (AUTO) 0.1 K/uL (0-0.4); EOSINOPHILS % (AUTO) 1.1 % (0.0-4.0); HEMATOCRIT 25.9 % (36-48); HEMOGLOBIN 8.6 g/dL (12.0-16.0); LYMPHOCYTES # (AUTO) 1.7 K/uL (2.5-16.5); LYMPHOCYTES % (AUTO) 21.9 % (20.5-51.1); MEAN CORPUSCULAR HEMOGLOBIN 26 pg (27-31); MEAN CORPUSCULAR HGB CONC 33 g/dL (33-37); MEAN CORPUSCULAR VOLUME 79.4 fL (80-94); MONOCYTES # (AUTO) 0.5 K/uL (0.8-1.0); MONOCYTES % (AUTO) 6.2 % (1.7-9.3); NEUTROPHILS # (AUTO) 5.4 K/uL (1.8-7.7); NEUTROPHILS % (AUTO) 70.5 % (42.2-75.2); PLATELET COUNT (AUTO) 246 K/uL (140-450); RED BLOOD CELL COUNT(AUTO) 3.26 MIL/uL (4.20-5.40); RED CELL DISTRIBUTION WIDTH 16.6 % (11.6-13.7); WHITE BLOOD COUNT (AUTO) 7.6 K/uL (4.8-10.8)
--- NOTE | 2023-05-11 06:55 | NUR ---
LAB WAS ABLE TO DRAW CBC BUT NOT ABLE TO FINISH BLOOD DRAW. VEINS BLEW AND PT REFUSE TO BE POKE AGAIN.
--- NOTE | 2023-05-11 07:06 | NUR ---
ENDORSED PT TO DAY SHIFT RN FOR CONTINUITY OF CARE. PT IS STABLE.
[2023-05-11] MEDS: PANTOPRAZOLE 40 MG TABEC PO SCH (09:03)
[2023-05-11] MEDS: HYDROcodone/APAP 7.5/325 MG 1 TAB PO PRN (09:03)
[2023-05-11] MEDS: MAGNESIUM OXIDE 400 MG TAB PO SCH (09:03)
--- NOTE | 2023-05-11 19:30 | NUR ---
RECEIVED REPORT FROM DAY SHIFT RN FOR CONTINUITY OF CARE. PT IS AWAKE AND ALERT. RESTING IN BED. NOT IN ANY DISTRESS. IV ON LEFT WRIST 22 GAUGE RUNNING D5 NS 100 CC/HR. POC DISCUSSED. WILL CONTINUE TO MONITOR THE PT.
[2023-05-11 20:00] VITALS: BP 97/59
[2023-05-12] MEDS: PIPERACILLIN/TAZOBACTAM 3.375 GM in DEXTROSE 5% 50 ML IV SCH ×4 (00:19→18:10)
[2023-05-12] MEDS: MORPHINE SULFATE 4 MG/ML SYR IVP PRN ×5 (00:51→23:43)
--- NOTE | 2023-05-12 00:51 | NUR ---
PT COMPLAIN OF RIGHT FOOT PAIN. 08/11. MORPHINE WAS GIVEN. NO OTHER COMPLAINS. WILL CONTINUE TO MONITOR THE PT.
[2023-05-12] MEDS: DEXT 5% /NACL 0.9% 1,000 ML IV SCH ×3 (03:00→23:28)
[2023-05-12 04:00] VITALS: BP 131/79
[2023-05-12] MEDS: INSULIN LISPRO SLIDING SCALE 100 UNITS/ML VIAL SUBQ PRN ×4 (06:38→21:45)
[2023-05-12] MEDS: BLOOD GLUCOSE MONITORING 1 DEV DEV FS SCH ×4 (06:39→21:34)
[2023-05-12] MEDS: HYDROcodone/APAP 7.5/325 MG 1 TAB PO PRN (06:48)
[2023-05-12 06:57] LABS: CARBON DIOXIDE 32.9 mmol/L (21-32); CREATININE 0.7 mg/dL (0.6-1.3); POTASSIUM 4.9 mmol/L (3.5-5.1)
--- NOTE | 2023-05-12 07:06 | NUR ---
ENDORSED PT TO DAY SHIFT RN FOR CONTINUITY OF CARE. PT IS STABLE.
[2023-05-12 07:20] LABS: BASOPHILS % (AUTO) 0.3 % (0.0-2.0); EOSINOPHILS # (AUTO) 0.1 K/uL (0-0.4); EOSINOPHILS % (AUTO) 1.3 % (0.0-4.0); HEMATOCRIT 27.2 % (36-48); LYMPHOCYTES # (AUTO) 1.7 K/uL (2.5-16.5); LYMPHOCYTES % (AUTO) 22.4 % (20.5-51.1); MEAN CORPUSCULAR HEMOGLOBIN 26 pg (27-31); MEAN CORPUSCULAR HGB CONC 33 g/dL (33-37); MEAN CORPUSCULAR VOLUME 79.8 fL (80-94); MONOCYTES # (AUTO) 0.4 K/uL (0.8-1.0); MONOCYTES % (AUTO) 5.1 % (1.7-9.3); NEUTROPHILS # (AUTO) 5.3 K/uL (1.8-7.7); NEUTROPHILS % (AUTO) 70.9 % (42.2-75.2); PLATELET COUNT (AUTO) 306 K/uL (140-450); RED BLOOD CELL COUNT(AUTO) 3.41 MIL/uL (4.20-5.40); RED CELL DISTRIBUTION WIDTH 16.5 % (11.6-13.7); WHITE BLOOD COUNT (AUTO) 7.5 K/uL (4.8-10.8)
[2023-05-12] MEDS: MAGNESIUM OXIDE 400 MG TAB PO SCH (08:53)
[2023-05-12] MEDS: PANTOPRAZOLE 40 MG TABEC PO SCH (08:53)
[2023-05-12 20:00] VITALS: BP 140/82
--- NOTE | 2023-05-12 20:20 | NUR ---
DR. MALLOY AT BEDSIDE , ASSESSING THE PT . WHEN DR. MALLOY CLEANING AND DRESSING THE WOUND , PT C/ O PAIN - PER DR. MALLOY HE WILL ORDER TORADOL 15MG TIV ONE DOSE FOR PAIN WILL CARRY OUT .
[2023-05-12] MEDS ORDERED: KETOROLAC 15 MG/ML VIAL IVP SCH (21:25)
--- NOTE | 2023-05-12 23:32 | NUR ---
c/o pain per pt toradol does not works - will medicate , she rates the pain as 9 bp 147 / 99 , pr 72 , o2 98 % , rr 18 .
[2023-05-13] MEDS: PIPERACILLIN/TAZOBACTAM 3.375 GM in DEXTROSE 5% 50 ML IV SCH ×3 (01:18→21:32)
[2023-05-13 04:00] VITALS: BP 150/65
--- NOTE | 2023-05-13 06:10 | NUR ---
REFUSED BLOOD DRAW AM LABS - WILL ENDORSE .
--- NOTE | 2023-05-13 06:36 | NUR ---
bs 393 - 10 u sq humalog given - informed dr. wick - suggesting to shift the ivf to nss . - will endorse .
[2023-05-13] MEDS: INSULIN LISPRO SLIDING SCALE 100 UNITS/ML VIAL SUBQ PRN ×4 (06:46→22:17)
[2023-05-13] MEDS: BLOOD GLUCOSE MONITORING 1 DEV DEV FS SCH ×4 (06:46→22:15)
--- NOTE | 2023-05-13 07:16 | NUR ---
endorsed pt for cont. of care .
--- NOTE | 2023-05-13 07:18 | NUR ---
RECEIVED REPORT FROM COLOR CONSULTANT NURSE FOR CONTINUITY OF CARE. PT IS AWAKE , PT STABLE. WILL CONTINUE WITH POC.
[2023-05-13] MEDS: PANTOPRAZOLE 40 MG TABEC PO SCH (08:20)
[2023-05-13] MEDS: MAGNESIUM OXIDE 400 MG TAB PO SCH (08:20)
--- NOTE | 2023-05-13 08:20 | NUR ---
GAVE PT MORPHINE AROUND 0820, PAIN SCALE 10/10. EMAR WASN'T SAVED, INFORMED PHARMACY.
--- NOTE | 2023-05-13 09:15 | NUR ---
FNS CONSULT RECEIVED FOR WOUNDS/PRESSURE ULCER AND DIABETES, PATIENT SEEN ON 05/09/23 AND WILL HAVE A FOLLOW UP ON: 05/13/23-05/14/23.
[2023-05-13] MEDS: MORPHINE SULFATE 4 MG/ML SYR IVP PRN ×3 (11:09→21:23)
--- NOTE | 2023-05-13 11:09 | NUR ---
GAVE PT ANOTHER MORPHINE BECAUSE SHE REFUSES TO GO GET CT BECAUSE SHE IS IN PAIN. Addendum: 05/13/23 at 4 by JHON LAINEZ RN GAVE PT ANOTHER MORPHINE BECAUSE SHE REFUSES TO GO GET CT BECAUSE SHE IS IN PAIN. INFORMED.
[2023-05-13] MEDS ORDERED: NACL 0.9% 1,000 ML IV SCH (12:00)
[2023-05-13] MEDS: NACL 0.9% 1,000 ML IV SCH ×2 (12:38→23:50)
--- NOTE | 2023-05-13 19:30 | NUR ---
ENDORSED PT TO TRACK FITTER NURSE FOR CONTINUITY OF CARE. PT IS STABLE.
[2023-05-13 20:00] VITALS: BP 138/78
--- NOTE | 2023-05-13 21:00 | NUR ---
HIT THE CALL LIGHT PT C/O PAIN , SHE RATES THE PAIN 8 - WILL MEDICATE , BP 143/ 90 , SC 88 , O2 SAT 98 % , RR 18 , WILL CONT. TO MONITOR .
--- NOTE | 2023-05-14 | NUR ---
SLEEPING , WILL CONT. TO MONITOR , CALL LIGHT WITHIN REACH .
--- NOTE | 2023-05-14 02:00 | NUR ---
PT HITS THE CALL LIGHT C/O PAIN CRYING SHE RATES THE PAIN 9 / 10 , BP 128/ 67 , RR 18 , O2 SAT 97 % , WILL MEDICATE .
[2023-05-14] MEDS: MORPHINE SULFATE 4 MG/ML SYR IVP PRN ×4 (02:29→16:39)
[2023-05-14 04:00] VITALS: BP 128/66
[2023-05-14] MEDS: PIPERACILLIN/TAZOBACTAM 3.375 GM in DEXTROSE 5% 50 ML IV SCH ×2 (05:22→13:31)
[2023-05-14] MEDS: INSULIN LISPRO SLIDING SCALE 100 UNITS/ML VIAL SUBQ PRN (06:24)
[2023-05-14] MEDS: BLOOD GLUCOSE MONITORING 1 DEV DEV FS SCH ×3 (06:24→16:44)
[2023-05-14 06:57] LABS: BASOPHILS % (AUTO) 0.4 % (0.0-2.0); EOSINOPHILS # (AUTO) 0.2 K/uL (0-0.4); HEMATOCRIT 29.8 % (36-48); HEMOGLOBIN 9.7 g/dL (12.0-16.0); LYMPHOCYTES # (AUTO) 1.8 K/uL (2.5-16.5); LYMPHOCYTES % (AUTO) 23.7 % (20.5-51.1); MEAN CORPUSCULAR HEMOGLOBIN 26 pg (27-31); MEAN CORPUSCULAR HGB CONC 33 g/dL (33-37); MEAN CORPUSCULAR VOLUME 79.3 fL (80-94); MONOCYTES # (AUTO) 0.4 K/uL (0.8-1.0); MONOCYTES % (AUTO) 5.2 % (1.7-9.3); NEUTROPHILS # (AUTO) 5.2 K/uL (1.8-7.7); NEUTROPHILS % (AUTO) 68.7 % (42.2-75.2); PLATELET COUNT (AUTO) 402 K/uL (140-450); RED BLOOD CELL COUNT(AUTO) 3.76 MIL/uL (4.20-5.40); RED CELL DISTRIBUTION WIDTH 16.4 % (11.6-13.7); WHITE BLOOD COUNT (AUTO) 7.6 K/uL (4.8-10.8)
--- NOTE | 2023-05-14 07:00 | NUR ---
PT HIT THECALL LIGHT C/O PAIN RATES 9 - BP 117/60 , RR 20 , O2 SAT 98 % , - WILL MEDICATE
[2023-05-14] MEDS ORDERED: PIPE1SOL IV (07:07)
[2023-05-14] MEDS ORDERED: PANT40EC56 PO (07:07)
[2023-05-14 07:08] LABS: ANION GAP 10.4 (8-16); CREATININE 0.7 mg/dL (0.6-1.3); POTASSIUM 4.4 mmol/L (3.5-5.1)
--- NOTE | 2023-05-14 07:16 | NUR ---
PUT PT. ON NPO - PT VERBALIZES UNDERSTANDING . - WILL ENDORSE .
[2023-05-14] MEDS: NACL 0.9% 1,000 ML IV SCH ×2 (08:00→18:00)
--- NOTE | 2023-05-14 08:00 | NUR ---
RECEIVED REPORT ON PT FOR CONTINUITY OF CARE. PT IN STABLE CONDITION. NOTIFIED PICC LINE NURSE FOR ACTIVE ORDER.
--- NOTE | 2023-05-14 08:01 | NUR ---
ENDORSED PT FOR CPNT. OF CARE . ENDORSED BLAIR TO LOOK UP THE SCHED OR BOARD FOR TIME OF SURGERY AND FF UP PICC LINER TODAY , BLAIR VERBALIZES UNDERSTANDING .
[2023-05-14] MEDS: MAGNESIUM OXIDE 400 MG TAB PO SCH (09:00)
[2023-05-14] MEDS: PANTOPRAZOLE 40 MG TABEC PO SCH (09:00)
--- NOTE | 2023-05-14 09:00 | NUR ---
ENDORSED PT TO ADZE RN FOR CONTINUITY OF CARE. PT IN STABLE CONDITION.
--- NOTE | 2023-05-14 13:49 | NUR ---
05/14/23 RD FOLLOW UP COMPLETED PLEASE REFER TO NUTRITION ASSESSMENT UNDER CARE ACTIVITY FOR ESTIMATED NUTRITIONAL NEEDS. 1. CONTINUE NPO DIET AND ADVANCE BACK TO CLEAR LIQUID DIET ONCE MEDICALLY APPROPRIATE. 2. CONTINUE PROSOURCE BID ONCE MEDICALLY APPROPRIATE FOR WOUND. THIS WILL PROVIDE 120 KCALS AND 30 GRAMS OF PROTEIN. 3. RD TO FOLLOW-UP 3-5 DAYS, MODERATE RISK OREN QUIROGA, RD
--- NOTE | 2023-05-14 18:43 | NUR ---
patient discharged to [facility]. stable upon discharged
== END 2023-05-14 18:35 | DRG 344 ==
LOC: MED 09:30 → MMU 12:46 → MTU 13:54
PROVIDERS: ADMIT Family Medicine; ATTEND Family Medicine
PROC: 02HV33Z Insertion of Infusion Device into Superior Vena Cava, Percutaneous Approach (ICD-10-PCS; principal; 2023-05-14)
PROC: B548ZZA Ultrasonography of Superior Vena Cava, Guidance (ICD-10-PCS; 2023-05-14)
DX: E11.69 Type 2 diabetes mellitus with other specified complication (principal); M86.8X7 Other osteomyelitis, ankle and foot; E11.621 Type 2 diabetes mellitus with foot ulcer; E44.1 Mild protein-calorie malnutrition; E11.51 Type 2 diabetes mellitus with diabetic peripheral angiopathy without gangrene; D63.8 Anemia in other chronic diseases classified elsewhere; L03.115 Cellulitis of right lower limb; E87.1 Hypo-osmolality and hyponatremia; K92.2 Gastrointestinal hemorrhage, unspecified; E11.65 Type 2 diabetes mellitus with hyperglycemia; E83.42 Hypomagnesemia; F32.A Depression, unspecified; I10 Essential (primary) hypertension; Z20.822 Contact with and (suspected) exposure to COVID-19; F41.9 Anxiety disorder, unspecified; Z79.1 Long term (current) use of non-steroidal anti-inflammatories (NSAID); Z79.2 Long term (current) use of antibiotics; Z79.899 Other long term (current) drug therapy; Z85.118 Personal history of other malignant neoplasm of bronchus and lung; Z68.21 Body mass index [BMI] 21.0-21.9, adult; L97.519 Non-pressure chronic ulcer of other part of right foot with unspecified severity
CPT/HCPCS: 36415; 70450; 71045; 73630; 80048; 80053; 82150; 82948; 83036; 83605; 83690; 83735; 83880; 84100; 84436; 84439; 84443; 84479; 84484; 85025; 85610; 85651; 85730; 86140; 86886; 86900; 86901; 87040; 87081; 93005; 93925; 96365; 96367; 96375; 99291; C9113; J1815; J1885; J2270; J2405; J2543; J3370; J7060; Q0092

== ENCOUNTER 2023-06-15 01:53 | Inpatient (IN) | payer MEDICAID ==
[~2023-06-15] VITALS: Ht 160 cm; Wt 59.0 kg
[~2023-06-15 01:53] MED LIST changes: +APIX5TAB PO; +METF-352 PO; +PANT40EC56 PO; +PIPE1SOL IV
[2023-06-15 01:57] VITALS: BP 91/67; PULSE 92; RESP 16; TEMP 97.4; O2SAT 98
--- NOTE | 2023-06-15 02:13 | NUR ---
pt taken by wc to bed 01, call light w/in reach.
--- NOTE | 2023-06-15 02:21 | NUR ---
SPOKE WITH PATIENT AT BEDSIDE, PATIENT REPORT TOTAL BODY PAIN, RECENT RIGHT FOOT AMPUTATION. HAS HISTORY OF HTN, ESRD, AND DM.
--- NOTE | 2023-06-15 02:23 | NUR ---
patients daughter will like to be notified of patients progress and for crop picker.
[2023-06-15] MEDS ORDERED: ONDANSETRON 4 MG/2 ML VIAL IVP ONE (03:30)
[2023-06-15] MEDS ORDERED: VANCOMYCIN 1,000 MG in DEXTROSE 5% 250 ML IV ONE (03:30)
[2023-06-15] MEDS ORDERED: MORPHINE SULFATE 4 MG/ML SYR IVP ONE (03:30)
[2023-06-15] MEDS ORDERED: MORPHINE SULFATE 4 MG/ML SYR ONE (04:37)
[2023-06-15] MEDS ORDERED: VANCOMYCIN 1,000 MG VIAL ONE ×3 (04:37→08:51)
[2023-06-15] MEDS ORDERED: ONDANSETRON 4 MG/2 ML VIAL ONE (04:38)
--- NOTE | 2023-06-15 05:00 | NUR ---
UNABLE TO SCAN PATIENT TO ADMINISTER MEDICATIONS DUE TO INCORRECT BAR CODE PRINTING OUT FROM ER. CHARGE NURSE (BRUNA IS AWARE) MEDICATIONS ADMINISTERED TO PATIENT: -MORPHINE 4MG ZOFRAN 2MG PATIENT HAS ORDER FOR VANCOMYCIN, UNABLE TO START IV ABX. PATIENT IS PENDING BLOOD CULTURES, (DR. HENLEY) IS AWARE
[2023-06-15] MEDS ORDERED: NACL 0.9% 1,000 ML IV ONE ×3 (05:10→10:20)
--- NOTE | 2023-06-15 05:40 | NUR ---
AT BEDSIDE WITH (DR. HENLEY) WHO IS USING ULTRASOUND TO LOCATE VEIN FOR ALTERNATE IV ACCESS AND TO DRAW LABS 20G PERIPHERAL IV ESTABLISHED IN LEFT UPPER ARM BLOOD SAMPLES OBTAINED INCLUDING CULTURES, SAMPLE TAKEN TO LAB
--- NOTE | 2023-06-15 05:48 | NUR ---
UNABLE TO SCAN PATIENT TO ADMINISTER MEDICATIONS DUE TO INCORRECT BAR CODE PRINTING OUT FROM ER. CHARGE NURSE (BRUNA IS AWARE) MEDICATION: NORMAL SALINE
[2023-06-15 06:45] LABS: BASOPHILS % (AUTO) 0.5 % (0.0-2.0); EOSINOPHILS % (AUTO) 0.4 % (0.0-4.0); HEMATOCRIT 26.2 % (36-48); HEMOGLOBIN 8.5 g/dL (12.0-16.0); LYMPHOCYTES # (AUTO) 1.2 K/uL (2.5-16.5); LYMPHOCYTES % (AUTO) 14.6 % (20.5-51.1); MEAN CORPUSCULAR HEMOGLOBIN 25 pg (27-31); MEAN CORPUSCULAR HGB CONC 33 g/dL (33-37); MEAN CORPUSCULAR VOLUME 76.1 fL (80-94); MONOCYTES # (AUTO) 0.6 K/uL (0.8-1.0); MONOCYTES % (AUTO) 7.2 % (1.7-9.3); NEUTROPHILS # (AUTO) 6.4 K/uL (1.8-7.7); NEUTROPHILS % (AUTO) 77.3 % (42.2-75.2); PLATELET COUNT (AUTO) 233 K/uL (140-450); RED BLOOD CELL COUNT(AUTO) 3.44 MIL/uL (4.20-5.40); RED CELL DISTRIBUTION WIDTH 17.5 % (11.6-13.7); WHITE BLOOD COUNT (AUTO) 8.3 K/uL (4.8-10.8)
[2023-06-15] MEDS ORDERED: PIPERACILLIN/TAZOBACTAM 3.375 GM in DEXTROSE 5% 50 ML IV ONE (06:45)
[2023-06-15] MEDS ORDERED: PIPERACILLIN/TAZOBACTAM 3.375 GM VIAL IV ONE ×3 (06:53→19:36)
--- NOTE | 2023-06-15 06:55 | NUR ---
UNABLE TO SCAN PATIENT TO ADMINISTER MEDICATIONS DUE TO INCORRECT BAR CODE PRINTING OUT FROM ER. CHARGE NURSE (BRUNA IS AWARE) MEDICATION: ZOSYN 3.375GM
--- NOTE | 2023-06-15 06:57 | NUR ---
Patient noted to have existing wounds upon arrival to ER. Photos taken of wound and placed in chart. Wound covered with dressing. Physician informed.
[2023-06-15 06:58] LABS: ALBUMIN 2.6 g/dL (3.4-5.0); ANION GAP 12.7 (8-16); CARBON DIOXIDE 21.3 mmol/L (21-32); CREATININE 0.8 mg/dL (0.6-1.3); TOTAL BILIRUBIN 0.4 mg/dL (0.0-1.0)
--- NOTE | 2023-06-15 07:25 | NUR ---
Pt report given to KE. Transfer of care at this time.
--- NOTE | 2023-06-15 07:26 | NUR ---
Report receieved from DIMAS Ramirez for transfer of care.
[2023-06-15] MEDS ORDERED: KCL 20 MEQ IN 100 mL PREMIX 100 ML IV ONE (08:00)
[2023-06-15] MEDS ORDERED: POTASSIUM CHLORIDE 10 MEQ TABER PO ONE (08:00)
--- NOTE | 2023-06-15 08:34 | NUR ---
PT REFUSED TO PROVIDE URINE AND REFUSED CATH COLLECT. PT STATES "YOU ARE NOT TOUCHING"
--- NOTE | 2023-06-15 08:41 | NUR ---
Report given to SONIDO Eugene for transfer of care.
[2023-06-15 08:42] VITALS: O2SAT 98
--- NOTE | 2023-06-15 08:42 | NUR ---
TRANSFER OF CARE RECEIVED FROM [facility].
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
--- NOTE | 2023-06-15 10:34 | NUR ---
IV INFILTRATED, ATTEMPT TO OBTAIN IV LOCK, PT REFUSED.
[2023-06-15 10:46] VITALS: O2SAT 98
[2023-06-15] MEDS: PIPERACILLIN/TAZOBACTAM 3.375 GM in DEXTROSE 5% 50 ML IV SCH ×2 (12:00→19:44)
--- NOTE | 2023-06-15 12:33 | NUR ---
2ND ATTEMPT TO START IV, PT REFUSED, PT STATED "GET THE FUCK OUT OF MY ROOM AND STICK IT UP YOUR ASS". SAFETY MAINTAINED.
[2023-06-15 13:01] VITALS: O2SAT 98
[2023-06-15 15:02] VITALS: O2SAT 98
--- NOTE | 2023-06-15 15:57 | NUR ---
3RD ATTEMP TO START IV FOR MAINTANENCE FLUIDS/IV PUSH MEDS. PT STATES "GET THE HELL OUT OF ROOM YOU STUPID BITCH AND DON'T COME BACK."
--- NOTE | 2023-06-15 16:03 | NUR ---
IV STARTED BY BUSTER COCHRAN ON RT HAND, 20G.
--- NOTE | 2023-06-15 16:36 | NUR ---
MORPHINE 2MG ADMINISTER BY BUSTER FRANKLIN
[2023-06-15 17:11] VITALS: O2SAT 98
--- NOTE | 2023-06-15 17:59 | NUR ---
PT EATING IN UPRIGHT POSITION, ON HEALTH INFORMATION TECH
--- NOTE | 2023-06-15 18:34 | NUR ---
PATIENT WAS MADE CLEAN AND DRY. INCONTINENCE CARE PROVIDED, FRESH LINEN GIVEN. CALL LIGHT WITHIN REACH.
--- NOTE | 2023-06-15 19:29 | NUR ---
TRANSFER OF CARE GIVEN TO ELISSA COCHRAN. ALL QUESTIONS ANSWERED.
--- NOTE | 2023-06-15 19:30 | NUR ---
pt resting on bed, A/ox4. not in distress. on monitor, ' call light within reach. pt instructed on how to use call light. pt returned demonstration. all needs met at this time. bed locked in lowest position. side rails x2 for safety. no standard id wrist band available. noted by charge nurse. verified pt name and date of when doing bedside and giving medication. purewick on continuous suctioning noted.
--- NOTE | 2023-06-15 20:00 | NUR ---
Resting comfortably at this time, rise and fall of chest noted. No s/s pain or distress.
--- NOTE | 2023-06-15 22:00 | NUR ---
pt resting on bed, A/ox4. not in distress. on monitor, ' call light within reach. all needs met at this time. bed locked in lowest position. side rails x2 for safety
[2023-06-16] MEDS: MORPHINE SULFATE 2 MG/ML SYR IVP PRN ×4 (00:02→23:55)
--- NOTE | 2023-06-16 00:02 | NUR ---
pt complained of 8/10 right foot pain. morphine 2mg iv given as ordered
[2023-06-16] MEDS ORDERED: PIPERACILLIN/TAZOBACTAM 3.375 GM VIAL IV ONE ×2 (00:17→06:03)
[2023-06-16] MEDS: PIPERACILLIN/TAZOBACTAM 3.375 GM in DEXTROSE 5% 50 ML IV SCH ×5 (00:26→23:47)
--- NOTE | 2023-06-16 01:35 | NUR ---
Resting comfortably at this time. No s/s pain or discomfort. Rise and fall of chest noted. VSS
--- NOTE | 2023-06-16 07:27 | NUR ---
Pt report given to columba rizzo. columba rizzo verbalized understanding and no further question. Transfer of care at this time.
[2023-06-16 07:29] VITALS: O2SAT 95
--- NOTE | 2023-06-16 07:29 | NUR ---
PT RESTING IN BED QUIETLY, AOX4, NAD NOTED, SAFETY MAINTAINED. AWAITING FOR ADMIT BED TO MED/SURG.
--- NOTE | 2023-06-16 07:29 | NUR ---
TRANSFER OF CARE RECEIVED FROM ELISSA COCHRAN. ALL QUESTIONS ANSWERED.
--- NOTE | 2023-06-16 08:02 | NUR ---
Patient will be admitted to care of WESLEY GORE MD. Admited to MED/SURG. Will go to room 119B. Belongings list completed. Report to MONE COCHRAN.
[2023-06-16] MEDS ORDERED: ACETAMINOPHEN 325 MG TAB PO PRN (09:30)
[2023-06-16] MEDS ORDERED: POTASSIUM CHLORIDE 10 MEQ TABER PO PRN (09:30)
[2023-06-16] MEDS ORDERED: ZOLPIDEM 10 MG TAB PO PRN (09:30)
[2023-06-16] MEDS ORDERED: DOCUSATE SODIUM 100 MG GELCAP PO PRN (09:30)
--- NOTE | 2023-06-16 10:30 | NUR ---
admitted the patient from the emergency room william tobias with admitting diagnosis of right diabetic foot ulcer patinet complainin of severe pain at this time 08/11 . pain medication was administered . will continue to monitor
--- NOTE | 2023-06-16 11:21 | NUR ---
PATIENT HAS BEEN SCREENED AND CATEGORIZED MODERATE NUTRITION RISK. PATIENT WILL BE SEEN WITHIN 3-5 DAYS OF ADMISSION. 06/15/23-06/19/[address]
[2023-06-16] MEDS: traMADol 50 MG TAB PO PRN (12:55)
--- NOTE | 2023-06-16 13:00 | NUR ---
Md Tran made rounds . to schedule incision and drainage , amputation right foot . consent has been obtained from the patient . risk and benefits has been explain to the patient. will continue to monitor
[2023-06-16 16:00] VITALS: BP 96/65; PULSE 23; RESP 18; TEMP 92.8; O2SAT 96
[2023-06-16 16:15] VITALS: PULSE 68; RESP 20; O2SAT 98
--- NOTE | 2023-06-16 19:06 | NUR ---
will endorse to night clerk auditor rn for continuity of care . for antibiotics . and pain management
[2023-06-16 20:00] VITALS: BP 91/63; PULSE 24; PULSE 80; RESP 18; TEMP 97.4; O2SAT 96
[2023-06-16] MEDS ORDERED: DEXTROSE 50% 50 ML SYR IVP PRN (20:55)
[2023-06-16] MEDS: BLOOD GLUCOSE MONITORING 1 DEV DEV FS SCH (23:50)
[2023-06-17] MEDS: INSULIN LISPRO SLIDING SCALE 100 UNITS/ML VIAL SUBQ PRN ×3 (00:05→20:46)
[2023-06-17 04:00] VITALS: BP 96/64; PULSE 76; RESP 18; TEMP 97.6; O2SAT 96
[2023-06-17 04:03] LABS: BASOPHILS % (AUTO) 0.6 % (0.0-2.0); EOSINOPHILS # (AUTO) 0.1 K/uL (0-0.4); EOSINOPHILS % (AUTO) 0.9 % (0.0-4.0); HEMATOCRIT 29.4 % (36-48); HEMOGLOBIN 9.6 g/dL (12.0-16.0); LYMPHOCYTES # (AUTO) 1.4 K/uL (2.5-16.5); LYMPHOCYTES % (AUTO) 22.5 % (20.5-51.1); MEAN CORPUSCULAR HEMOGLOBIN 25 pg (27-31); MEAN CORPUSCULAR HGB CONC 33 g/dL (33-37); MONOCYTES # (AUTO) 0.5 K/uL (0.8-1.0); MONOCYTES % (AUTO) 8.2 % (1.7-9.3); NEUTROPHILS # (AUTO) 4.3 K/uL (1.8-7.7); NEUTROPHILS % (AUTO) 67.8 % (42.2-75.2); PLATELET COUNT (AUTO) 243 K/uL (140-450); RED BLOOD CELL COUNT(AUTO) 3.92 MIL/uL (4.20-5.40); RED CELL DISTRIBUTION WIDTH 17.7 % (11.6-13.7); WHITE BLOOD COUNT (AUTO) 6.4 K/uL (4.8-10.8)
[2023-06-17 04:16] LABS: ANION GAP 8.5 (8-16); CARBON DIOXIDE 31.2 mmol/L (21-32); CREATININE 0.6 mg/dL (0.6-1.3); POTASSIUM 3.7 mmol/L (3.5-5.1)
[2023-06-17 04:17] LABS: PROTHROMBIN TIME 11.6 secs (10.8-13.4)
[2023-06-17] MEDS: PIPERACILLIN/TAZOBACTAM 3.375 GM in DEXTROSE 5% 50 ML IV SCH ×4 (05:23→23:34)
[2023-06-17] MEDS: MORPHINE SULFATE 2 MG/ML SYR IVP PRN ×4 (05:23→21:36)
--- NOTE | 2023-06-17 07:11 | NUR ---
receive the patient from the manufacturing supervisor 2nd shift rn in 119B from March admitting diagnosis of right diabetic foot ulcer for antibiotic therapy . for incision and drainage , amputation of the foot today . still NPO since midnight . will continue to monitor
[2023-06-17 08:00] VITALS: BP 99/67; PULSE 73; RESP 16; TEMP 97.1; O2SAT 96
[2023-06-17 08:07] VITALS: PULSE 70; RESP 20; O2SAT 99
[2023-06-17] MEDS: BLOOD GLUCOSE MONITORING 1 DEV DEV FS SCH ×4 (08:16→20:43)
--- NOTE | 2023-06-17 09:13 | NUR ---
WOUND CARE NOTE: PT. ADMITTED WITH A SURGICAL WOUND DEHISCENCE TO RIGHT FOOT PARTIAL AMPUTATION 3X9CM WOUND BED 100% DROWN/BLACK WOUND BED LOOSE SUTURES WITH CAMILA WOUND SKIN ERYTHEMA. DR. MALLOY HAS CONSULTED WITH SCHEDULED DEBRIDEMENT. PT. WITH LOW KAVITA SCALE AT MODERATE TO HIGH RISK, CONTINUE TO FOLLOW PRESSURE INJURY PREVENTION INTERVENTIONS. POC DISCUSSED WITH PRIMARY RN JYOTI, WILL CONTINUE TO FOLLOW UP WITH DR. MALLOY'S ORDER. -POSITIONING: TURN AND REPOSITION PATIENT Q 2H OR SOONER USE PILLOWS TO KEEP BONY PROMINENCES FROM DIRECT CONTACT WITH SURFACES USE REPOSITIONING WEDGES TO PROVIDE 30-DEGREE ANGLE FOR SIDE LYING POSITIONS OFFLOADING OR FOAM DRESSING TO ALL TUBING TO PREVENT MEDICAL DEVICES RELATED PRESSURE INJURY -RE-EVALUATING AND MANAGING INCONTINENCE MONITOR SKIN CONDITION DURING POSITION CHANGE DO NOT MASSAGE REDNESS, BONY PROMINENCES FREQUENT CAMILA-CARE AND PROVIDE BARRIER CREAMS PRN IF SOILING MOISTURE CONTROL BY OFFER BED ALTMAN/ABSORBENT PAD TO WICK AND HOLD MOISTURE KEEP SKIN DRY AND PROTECT FROM FRICTION -MANAGE FRICTION/SHEAR/MOBILITY KEEP HOB AT THE LOWEST LEVEL OF ELEVATION NO MORE THAN 30 DEGREE UNLESS OTHERWISE CONTRAINDICATED USE LIFT SHEET OR TRANSFER DEVICE TO MOVE PATIENT AND PREVENT LATERAL SHEER. PROTECT HEELS, ELBOWS BONY PROMINENCES WITH SKIN BERRIES OR FOAM DRESSING IF EXPOSED TO FRICTION OFFLOAD BILATERAL HEELS BY PLACING PILLOWS UNDER CALVES AT ALL TIMES, UNLESS OTHERWISE CONTRAINDICATED -PRESSURE REDISTRIBUTION SURFACE THERAPY JORDON ISOFLEX MATTRESS -NUTRITION: PLEASE FOLLOW RD RECOMMENDATIONS AND OFFER NUTRITION SUPPLEMENTS IF ORDERED. PLEASE CONTACT WOUND CARE NURSE FOR ANY QUESTION AND CHANGE OF WOUND CONDITION.
[2023-06-17] MEDS: MAG SULF 2000 MG/WATER PREMIX 50 ML IV PRN (09:41)
[2023-06-17] MEDS ORDERED: BUPIVACAINE-MPF/EPI 0.5% 30 ML VIAL INJ ONE (12:33)
[2023-06-17] MEDS ORDERED: HYDROGEN PEROXIDE 3% 240 ML BTL TP ONE (12:33)
[2023-06-17] MEDS ORDERED: SEVOFLURANE 250 ML BTL INH ONE (13:00)
[2023-06-17] MEDS ORDERED: PROPOFOL 200 MG/20 ML VIAL IV ONE ×2 (13:00→13:23)
[2023-06-17] MEDS ORDERED: fentaNYL citrate 0.05 MG/ML - 50mL vial IV ONE (13:00)
[2023-06-17] MEDS ORDERED: BUPIVACAINE-MPF 0.5% 30 ML VIAL INJ ONE (13:03)
--- NOTE | 2023-06-17 13:20 | NUR ---
patient was brought to operating room for incision and drainage with Md Tran podiatry .
[2023-06-17] MEDS ORDERED: fentaNYL citrate 0.05 MG/ML VIAL ONE (13:23)
[2023-06-17] MEDS ORDERED: ePHEDrine 50 MG/ML VIAL ONE (13:41)
--- NOTE | 2023-06-17 14:07 | NUR ---
DC [age]ANN[age] YRS OLD FEMALE PATIENT WAS ADMITTED FROM HOME WITH A DX OF DIABETIC FOOT ULCER. PATIENT HAS A HX OF OSTEOMYELITIS OF RIGHT FIRST METATARSAL. ESRD DM, HTN, PVD , LUNG CA AND CVA. X-RAY OF RIGHT FOOT SHOWED ADVANCED OSTEOMYELITIS. ADMINISTERED IVF, IV ABX ZOSYN AND CONTINUED HOME MEDS . SEEN BY ID AND PODIATRY AND DR MALLOY SCHEDULED FO RI&D TODAY. DC PLAN PER ID RECOMMENDATIONS. CM TO FOLLOW Addendum: 06/19/23 at 1356 by Ofe Nunez RN DC PLANNING: S/P POST OP DAY # 2 OF RIGHT FOOT I&D. CONTINUED IV ABX VANCOMYCIN AND ZOSYN. SEEN BY ID DR KHAN AWAITING FOR WOUND CULTURE FOR IV ABX ADJUSTMENT. DC PLAN TO GO HOME WITH HOME HEALTH [facility]X SNF. CM TO FOLLOW Addendum: 06/21/23 at 1340 by KEVIN ROSSI CM RECEIVED ORDER FOR PATIENT TO GO TO SNF FOR IV ABX, PT AND WOUND CARE. FAXED ALL PAPERWORK TO [facility], [facility], [facility], [facility], [facility], [facility] , [facility], AND [facility]. EVERY ONE DECLINED PATIENTS DUE TO NO BEDS FOR [facility], TOO YOUNG FOR THE FACILITY AND AMA'D BEFORE. Addendum: 06/24/23 at 1348 by KEVIN ROSSI CM FAXED TO [facility], [facility], [facility], [facility], [facility], [facility], [facility], [facility], [facility], [facility], AND [facility]. Addendum: 06/24/23 at 1519 by KEVIN ROSSI CM THE FOLLOWING FACILITIES DECLINED: [facility], [facility], [facility], [facility], [facility], [facility], [facility], [facility], [facility] / [facility], AND [facility] BECAUSE OF AGE AND NO BED.
[2023-06-17] MEDS ORDERED: MEPERIDINE 25 MG/ML SYR IVP PRN (14:25)
[2023-06-17] MEDS ORDERED: ONDANSETRON 4 MG/2 ML VIAL IVP PRN (14:25)
[2023-06-17] MEDS ORDERED: HYDROmorphone 1 MG/ML AMP IVP PRN (14:25)
[2023-06-17] MEDS ORDERED: diphenhydrAMINE 50 MG/ML VIAL IVP PRN (14:25)
[2023-06-17 16:00] VITALS: BP 90/54; PULSE 78; RESP 16; TEMP 97; O2SAT 96
--- NOTE | 2023-06-17 16:40 | NUR ---
patient came back from operating room from incision and drainage of the right foot . patient on stable afebrile . patinet back to [facility] 60 gm . will continue to monitor .
--- NOTE | 2023-06-17 17:19 | NUR ---
the rn gave the patient homeless resource packet for future discharge
--- NOTE | 2023-06-17 18:33 | NUR ---
partial dose of Hydromorphone given . wasted 1mg . witness DIMAS Hernandez.
--- NOTE | 2023-06-17 18:55 | NUR ---
will endorse to maintenance mechanic 2nd shift rn for continuity of care status post incision and drainage , amputation of the right foot for antibiotics , pain management
[2023-06-17] MEDS: NACL 0.9% 1,000 ML IV SCH ×2 (19:15→22:45)
--- NOTE | 2023-06-17 19:20 | NUR ---
RECEIVED PT FROM MORNING SHIFT NURSE. PT IS AOX4, ON BEDREST, ABLE TO VERBALIZE NEEDS AND ABLE TO FOLLOW COMMANDS. PT IS ON ROOM AIR AND ON CCHO DIET. PT HAS IV ON RIGHT FOREARM GAUGE 22 SALINE LOCK AND LEFT AC GAUGE 22 RUNNING WITH NS AT 120ML/HR. PT HAS PICC LINE ON RIGHT UPPER ARM 2X LUMEN BUT NOT FUNCTIONING. PT IS ON STATUS POST i&D OF RIGHT FOOT AND AMPUTATION. ALL SAFETY MEASURES IMPLEMENTED. BED IN LOW POSITION, BED WHEELS ON LOCK AND CALL LIGHT WITHIN REACH.
[2023-06-17 20:00] VITALS: PULSE 76; RESP 18; O2SAT 98
--- NOTE | 2023-06-17 20:46 | NUR ---
PT BLOOD GLUCOSE IS 202. HUMALOG INSULIN 4 UNITS WAS GIVEN TO PT. ALL SAFETY MEASURES IMPLEMENTED. BED IN LOW POSITION, BED WHEELS ON LOCK AND CALL LIGHT WITHIN REACH.
[2023-06-17] MEDS: ONDANSETRON 4 MG/2 ML VIAL IVP PRN (21:36)
--- NOTE | 2023-06-17 21:36 | NUR ---
PRN PAIN MEDICATION WAS GIVEN TO PT DUE TO RIGHT FOOT PAIN WITH PAIN SCALE OF 6/10. ALL SAFETY MEASURES IMPLEMENTED. BED IN LOW POSITION, BED WHEELS ON LOCK AND CALL LIGHT WITHIN REACH.
--- NOTE | 2023-06-17 22:00 | NUR ---
CLEANED THE PT. CHANGED GOWN, LINENS, BLANKET AND DIAPER PER PT WANTS. ALL SAFETY MEASURES IMPLEMENTED. BED IN LOW POSITION, BED WHEELS ON LOCK AND CALL LIGHT WITHIN REACH.
--- NOTE | 2023-06-17 23:34 | NUR ---
SCHEDULED AND PRESCRIBED MEDICATION WAS GIVEN T PT PER MD ORDER. ALL SAFETY MEASURES IMPLEMENTED. BED IN LOW POSITION, BED WHEELS ON LOCK AND CALL LIGHT WITHIN REACH.
--- NOTE | 2023-06-18 02:00 | NUR ---
PT IS ON SLEEP. CHEST RISE AND FALL SYMMETRICALLY NOTED. RESPIRATION IS EVEN AND UNLABORED. ALL SAFETY MEASURES IMPLEMENTED. BED IN LOW POSITION, BED WHEELS ON LOCK AND CALL LIGHT WITHIN REACH.
[2023-06-18] MEDS: MORPHINE SULFATE 2 MG/ML SYR IVP PRN ×5 (03:18→22:40)
[2023-06-18 03:29] LABS: APPEARANCE,URINE CLOUDY (CLEAR); BILIRUBIN,URINE NEGATIVE (NEGATIVE); BLOOD, URINE 1+ (NEGATIVE); COLOR,URINE YELLOW (YELLOW); LEUKOCYTE ESTERASE ,URINE 1+ (NEGATIVE); NITRITE, URINE NEGATIVE (NEGATIVE); UGLUCOSE 1+ (NEGATIVE)
[2023-06-18 03:49] LABS: BARBITURATE, URINE NEGATIVE ng/ml (NEG <=200); BENZODIAZEPINE, URINE NEGATIVE ng/mL (NEG <=200); CANNABINOID, URINE POSITIVE ng/mL (NEG <=50); COCAINE, URINE NEGATIVE ng/mL (NEG <=300); OPIATE, URINE POSITIVE ng/mL (NEG <=2000); PHENCYCLIDINE SCREEN,URINE NEGATIVE ng/mL (NEG <=25)
[2023-06-18 04:00] VITALS: BP 133/58; PULSE 93; RESP 18; TEMP 98.6; O2SAT 95
[2023-06-18] MEDS: PIPERACILLIN/TAZOBACTAM 3.375 GM in DEXTROSE 5% 50 ML IV SCH ×3 (05:09→17:44)
--- NOTE | 2023-06-18 05:15 | NUR ---
LAB MADE ME AWARE THAT PT REFUSED IN BLOOD WITHDRAWAL, EDUCATED THE PT THE IMPORTANCE OF IT BUT STILL REFUSING.
[2023-06-18] MEDS: NACL 0.9% 1,000 ML IV SCH (06:44)
[2023-06-18] MEDS: BLOOD GLUCOSE MONITORING 1 DEV DEV FS SCH ×4 (06:45→21:09)
--- NOTE | 2023-06-18 06:48 | NUR ---
PT REFUSED BLOOD GLUCOSE CHECK. EDUCATED THE PT BUT PT STILL REFUSING.
--- NOTE | 2023-06-18 07:29 | NUR ---
PT IS STABLE. ENDORSED PT TO MORNING SHIFT NURSE FOR CONTINUITY OF CARE.
--- NOTE | 2023-06-18 07:30 | NUR ---
RECEIVED BEDSIDE REPORT FROM PETROLEUM GEOLOGIST NURSE FOR CONTINUITY OF CARE. PT IS ASLEEP, AWAKEN BY NAME. NO SIGN OF DISTRESS. CALL LIGHT WITHIN REACH.
[2023-06-18 08:00] VITALS: PULSE 86; RESP 18; TEMP 100; O2SAT 98
--- NOTE | 2023-06-18 08:20 | NUR ---
PT REFUSED AM LABS EVEN AFTER EXPLANATION OF RISKS AND BENEFITS. CALL LIGHT WITHIN REACH.
--- NOTE | 2023-06-18 09:30 | NUR ---
PT TEMP IS 100, TYLENOL NOT DUE YET, PT REFUSED COOLING MEASURES. CALL LIGHT WITHIN REACH.
[2023-06-18] MEDS: MAG SULF 2000 MG/WATER PREMIX 50 ML IV PRN (09:49)
[2023-06-18] MEDS: INSULIN LISPRO SLIDING SCALE 100 UNITS/ML VIAL SUBQ PRN ×2 (13:19→21:17)
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
--- NOTE | 2023-06-18 15:14 | NUR ---
06/18/23 RD INITIAL ASSESSMENT COMPLETED PLEASE REFER TO NUTRITION ASSESSMENT UNDER CARE ACTIVITY FOR ESTIMATED NUTRITIONAL NEEDS. 1. CONTINUE CCHO 60 GRAM DIET TOLERATED AND ADD RENAL STANDARD DIET AND ADD NEPRO BID WHICH WILL PROVIDE 840 CALORIES AND 38 GRAMS OF PROTEIN. 2. RD RECOMMENDS MECHANICAL SOFT TEXTURE PER PATIENT FOR HER CHEWING NEEDS. 3. RD RECOMMENDS PRSOURCE BID FOR HEALING WOULD WHICH WOULD PROVIDE 120 CALORIES AND 30 GRAMS OF PROTEIN. 4. RD WILL CONTINUE TO MONITOR PO INTAKE, WEIGHT, GI ISSUES AND NUTRITION RELATED LAB VALUES. 5. RD TO FOLLOW-UP 3-5 DAYS, MODERATE RISK OREN QUIROGA RD
--- NOTE | 2023-06-18 16:00 | NUR ---
PT STILL REFUSED THE LABS. CHARGE NURSE INFORMED.
--- NOTE | 2023-06-18 17:39 | NUR ---
P.T. NOTES P.T. EVAL INITIATED; REFER TO EVAL FOR DETAILS.
--- NOTE | 2023-06-18 19:25 | NUR ---
RECEIVED PT FROM MORNING SHIFT NURSE. PT IS AOX4, ON BEDREST, ABLE TO VERBALIZE NEEDS AND ABLE TO FOLLOW COMMANDS. PT IS ON ROOM AIR AND ON CCHO DIET. PT HAS IV ON RIGHT FOREARM GAUGE 22 SALINE LOCK AND LEFT AC GAUGE 22, SALINE LOCK. PT HAS PICC LINE ON RIGHT UPPER ARM 2X LUMEN BUT NOT FUNCTIONING. NO COMPLAIN OF PAIN AT THIS TIME. NO S/S OF RESPIRATORY DISTRESS NOTED. ALL SAFETY MEASURES IMPLEMENTED. BED IN LOW POSITION, BED WHEELS ON LOCK AND CALL LIGHT WITHIN REACH.
--- NOTE | 2023-06-18 19:25 | NUR ---
ENDORSED PT TO SUPERVISOR BEAM DEPARTMENT NURSE FOR CONTINUITY OF CARE. PT'S PICC LINE REMOVAL WAS ENDORSED TO NIGHT NURSE. PT IS STABLE, NO SIGN OF DISTRESS. CALL LIGHT WITHIN REACH.
[2023-06-18 20:00] VITALS: BP 122/69; PULSE 90; RESP 18; TEMP 98.2; O2SAT 100
--- NOTE | 2023-06-18 21:17 | NUR ---
PT BLOOD GLUCOSE IS 283. HUMALOG INSULIN 6 UNITS WAS GIVEN TO PT. ALL SAFETY MEASURES IMPLEMENTED. BED IN LOW POSITION, BED WHEELS ON LOCK AND CALL LIGHT WITHIN REACH.
--- NOTE | 2023-06-18 22:00 | NUR ---
PICC LINE WAS REMOVED PER MD ORDER. ALL SAFETY MEASURES IMPLEMENTED, BED IN LOW POSITION, BED WHEELS ON LOCK AND CALL LIGHT WITHIN REACH.
--- NOTE | 2023-06-18 22:40 | NUR ---
PT WAS GIVEN PRN MORPHINE WITH ZOFRAN DUE TO RIGHT FOOT PAIN WITH PAIN SCALE OF 6/10. ALL SAFETY MEASURES IMPLEMENTED. BED IN LOW POSITION, BED WHEELS ON LOCK AND CALL LIGHT WITHIN REACH.
[2023-06-18] MEDS: ONDANSETRON 4 MG/2 ML VIAL IVP PRN (22:41)
[2023-06-19] MEDS: PIPERACILLIN/TAZOBACTAM 3.375 GM in DEXTROSE 5% 50 ML IV SCH ×4 (00:03→17:09)
--- NOTE | 2023-06-19 00:03 | NUR ---
SCHEDULED AND RESCRIBED MEDICATION WAS GIVEN TO PT PER MD ORDER. ALL SAFETY MEASURES IMPLEMENTED. BED IN LOW POSITION, BED WHEELS ON LOCK AND CALL LIGHT WITHIN REACH.
[2023-06-19] MEDS: MORPHINE SULFATE 2 MG/ML SYR IVP PRN ×5 (02:56→22:25)
[2023-06-19 04:00] VITALS: BP 142/78; PULSE 78; RESP 18; TEMP 97.8; O2SAT 100
[2023-06-19 06:04] LABS: BASOPHILS % (AUTO) 0.5 % (0.0-2.0); EOSINOPHILS # (AUTO) 0.1 K/uL (0-0.4); EOSINOPHILS % (AUTO) 0.8 % (0.0-4.0); LYMPHOCYTES # (AUTO) 1.7 K/uL (2.5-16.5); LYMPHOCYTES % (AUTO) 18.3 % (20.5-51.1); MEAN CORPUSCULAR HEMOGLOBIN 25 pg (27-31); MEAN CORPUSCULAR HGB CONC 32 g/dL (33-37); MEAN CORPUSCULAR VOLUME 76.7 fL (80-94); MONOCYTES # (AUTO) 0.7 K/uL (0.8-1.0); MONOCYTES % (AUTO) 7.4 % (1.7-9.3); NEUTROPHILS # (AUTO) 6.9 K/uL (1.8-7.7); PLATELET COUNT (AUTO) 213 K/uL (140-450); RED BLOOD CELL COUNT(AUTO) 3.65 MIL/uL (4.20-5.40); RED CELL DISTRIBUTION WIDTH 17.9 % (11.6-13.7); WHITE BLOOD COUNT (AUTO) 9.4 K/uL (4.8-10.8)
[2023-06-19 06:23] LABS: ANION GAP 10.8 (8-16); CARBON DIOXIDE 28.7 mmol/L (21-32); CREATININE 0.7 mg/dL (0.6-1.3); POTASSIUM 3.5 mmol/L (3.5-5.1)
[2023-06-19] MEDS: BLOOD GLUCOSE MONITORING 1 DEV DEV FS SCH ×4 (06:32→20:30)
[2023-06-19] MEDS: INSULIN LISPRO SLIDING SCALE 100 UNITS/ML VIAL SUBQ PRN ×4 (06:33→20:33)
--- NOTE | 2023-06-19 06:33 | NUR ---
PT BLOOD GLUCOSE IS 326. HUMALOG INSULIN 8 UNITS WAS GIVEN TO PT. ALL SAFETY MEASURES IMPLEMENTED. BED IN LOW POSITION, BED WHEELS ON LOCK AND CALL LIGHT WITHIN REACH.
--- NOTE | 2023-06-19 07:05 | NUR ---
RECEIVED REPORT FROM RESIDENT CARE TECHNICIAN NURSE FOR CONTINUITY OF CARE. PT STABLE AT THIS TIME.
--- NOTE | 2023-06-19 07:23 | NUR ---
PT IS STABLE. ENDORSED PT TO MORNING SHIFT NURSE FOR CONTINUITY OF CARE.
[2023-06-19 08:00] VITALS: BP 132/75; PULSE 83; RESP 18; TEMP 98.5; O2SAT 95
[2023-06-19] MEDS: MAG SULF 2000 MG/WATER PREMIX 50 ML IV PRN (08:48)
[2023-06-19] MEDS ORDERED: MAG SULF 2000 MG/WATER PREMIX 50 ML IV SCH (09:13)
[2023-06-19 16:00] VITALS: BP 137/75; PULSE 74; RESP 18; TEMP 98.5; O2SAT 100
--- NOTE | 2023-06-19 18:15 | NUR ---
MESSAGED DR MALLOY ABOUT PATIENTS BANDAGE BEING CHANGED DUE TO IT BEING SOILED A LITTLE. RESPONDED AND SAID THAT HE WOULD SEE HER THIS EVENING.
--- NOTE | 2023-06-19 19:30 | NUR ---
RECEIVED ENDORSEMENT FROM DAY SHIFT NURSE FOR CONTINUITY OF CARE. PT IS ON BED SLEEPING. IV SITE ON RIGHT FOREARM INTACT AND PATENT. DRESSING ON RIGHT FOOT IS DRY.
--- NOTE | 2023-06-19 19:31 | NUR ---
ENDORSED TO BOWLING BALL MOLDER NURSE FOR CONTINUITY OF CARE. PT STABLE AT THIS TIME.
[2023-06-19 20:00] VITALS: BP 97/67; PULSE 75; RESP 19; TEMP 98.5; O2SAT 99
--- NOTE | 2023-06-19 20:33 | NUR ---
BLOOD SUGAR CHECKED = 208 = 4 UNITS HUMALOG INSULIN ADMINISTERED.
--- NOTE | 2023-06-19 21:00 | NUR ---
DR. MALLOY VISITED PT AND CHANGE RIGHT FOOT DRESSING. SURGICAL WOUND IS CLEAN AND DRY, NO SIGN/SYMPTOM OF INFECTION. DR. MALLOY STATED PT COULD BE DISCHARGED TOMORROW TO [facility] TO CONTINUE IV ANTIBIOTIC. MD ORDER TO PT TO SEE DR. MALLOY AT THE OFFICE IN 2-3 WEEKS PERIOD FOR EVALUATION OF THE WOUND. PT UNDERSTOOD WHILE NODDED TO .
--- NOTE | 2023-06-19 22:25 | NUR ---
PT COMPLAINTS OF RIGHT FOOT PAIN 05/11, PAIN MEDICATION MORPHINE 2MG ADMINISTERED ORDER.
--- NOTE | 2023-06-19 23:25 | NUR ---
REASSESSMENT OF PAIN. PT IS ASLEEP, NO FACIAL GRIMACING.
[2023-06-20] MEDS: MORPHINE SULFATE 2 MG/ML SYR IVP PRN ×4 (02:43→21:53)
--- NOTE | 2023-06-20 02:43 | NUR ---
PT COMPLAINTS OF RIGHT FOOT PAIN 10/, PAIN MEDICATION MORPHINE 2MG ADMINISTERED ORDER
--- NOTE | 2023-06-20 02:43 | NUR ---
REVISION OF PREVIOUS NOTES. PT COMPLAINTS OF RIGHT FOOT PAIN /10, NOT 10/10.
--- NOTE | 2023-06-20 03:43 | NUR ---
REASSESSMENT OF PAIN. PT IS ASLEEP, NO FACIAL GRIMACING.
[2023-06-20 04:00] VITALS: BP 152/72; PULSE 69; RESP 18; TEMP 97.4; O2SAT 100
[2023-06-20 04:41] LABS: BASOPHILS % (AUTO) 0.6 % (0.0-2.0); EOSINOPHILS # (AUTO) 0.1 K/uL (0-0.4); EOSINOPHILS % (AUTO) 1.1 % (0.0-4.0); HEMATOCRIT 27.7 % (36-48); HEMOGLOBIN 8.9 g/dL (12.0-16.0); LYMPHOCYTES # (AUTO) 1.6 K/uL (2.5-16.5); LYMPHOCYTES % (AUTO) 19.4 % (20.5-51.1); MEAN CORPUSCULAR HEMOGLOBIN 24 pg (27-31); MEAN CORPUSCULAR HGB CONC 32 g/dL (33-37); MEAN CORPUSCULAR VOLUME 75.3 fL (80-94); MONOCYTES # (AUTO) 0.5 K/uL (0.8-1.0); MONOCYTES % (AUTO) 6.4 % (1.7-9.3); NEUTROPHILS # (AUTO) 5.9 K/uL (1.8-7.7); NEUTROPHILS % (AUTO) 72.5 % (42.2-75.2); PLATELET COUNT (AUTO) 245 K/uL (140-450); RED BLOOD CELL COUNT(AUTO) 3.67 MIL/uL (4.20-5.40); RED CELL DISTRIBUTION WIDTH 17.7 % (11.6-13.7); WHITE BLOOD COUNT (AUTO) 8.1 K/uL (4.8-10.8)
[2023-06-20 05:05] LABS: CARBON DIOXIDE 31.6 mmol/L (21-32); CREATININE 0.6 mg/dL (0.6-1.3); POTASSIUM 3.6 mmol/L (3.5-5.1)
[2023-06-20] MEDS: BLOOD GLUCOSE MONITORING 1 DEV DEV FS SCH ×4 (07:00→21:58)
[2023-06-20] MEDS: INSULIN LISPRO SLIDING SCALE 100 UNITS/ML VIAL SUBQ PRN ×4 (07:02→22:01)
--- NOTE | 2023-06-20 07:02 | NUR ---
BLOOD SUGAR CHECKED = 195 = 2 UNITS HUMALOG INSULIN ADMINISTERED.
--- NOTE | 2023-06-20 07:30 | NUR ---
RECEIVED REPORT FROM GOLD NIB GRINDER NURSE FOR CONTINUITY OF CARE. PT STABLE AT THIS TIME.
[2023-06-20 08:00] VITALS: BP 135/71; PULSE 66; RESP 18; TEMP 98; O2SAT 98
[2023-06-20] MEDS: traMADol 50 MG TAB PO PRN (11:10)
[2023-06-20] MEDS: MAG SULF 2000 MG/WATER PREMIX 50 ML IV PRN (11:21)
[2023-06-20] MEDS: PIPERACILLIN/TAZOBACTAM 3.375 GM in DEXTROSE 5% 50 ML IV SCH ×2 (11:35→18:01)
--- NOTE | 2023-06-20 11:50 | NUR ---
In to see patient at bedside to inquire about various discharge options. The patient was engaging and in agreement to speaking with me. I inquired about discharge options with relatives of friends should a SNF not be willing to accept. The patient stated she had previously been at [facility] and wants to return back. I reviewed the barriers of placement in a SNF with the patient that will make it difficult for placement. The patient stated she had been there before and it wasn't and issue. I explained that because she had been there before and eloped from there, it is a concern; however I advised her that she had been at a couple other placements and had also eloped from there as well. The patient was advised that the case folder are trying to inquire and work for SNF placement. I discussed the skilled needs she could and receive at the SNF which include wound care and IV treatment. At this time, the patient is aware that cultures are still needed regarding her wound, but until then, nursing CM is trying to gain placement at any SNF who will accept. Prior to leaving, I confirmed the patient had all the applicable resources for her needs. Per patient, she received resources from the previous social service assistant and is not in need of anything additional. I meghan the resource guides on the bed table at bedside.
[2023-06-20 16:00] VITALS: BP 147/70; PULSE 70; RESP 18; TEMP 97.7; O2SAT 94
--- NOTE | 2023-06-20 19:30 | NUR ---
RECEIVED REPORT FROM DAY SHIFT RN FOR CONTINUITY OF CARE. PT IS RESTING IN BED. NOT IN ANY DISTRESS. BREATHING EVEN AND UNLABORED. POC DISCUSSED. CALL LIGHT WITHIN REACH. WILL CONTINUE TO MONITOR THE PT.
--- NOTE | 2023-06-20 19:54 | NUR ---
ENDORSED TO POOL FINISHER NURSE FOR CONTINUITY OF CARE. PT STABLE AT THIS TIME.
[2023-06-20 20:00] VITALS: PULSE 72; RESP 18; TEMP 97.2; O2SAT 96
[2023-06-20] MEDS: LINEZOLID 600 MG TAB PO SCH (21:51)
[2023-06-21] MEDS: PIPERACILLIN/TAZOBACTAM 3.375 GM in DEXTROSE 5% 50 ML IV SCH ×5 (00:10→23:27)
[2023-06-21] MEDS: MORPHINE SULFATE 2 MG/ML SYR IVP PRN ×4 (02:24→20:49)
--- NOTE | 2023-06-21 02:24 | NUR ---
PT COMPLAIN OF 8/10 PAIN ON RIGHT FOOT. MORPHINE WAS GIVEN. NO OTHER COMPLAINS.
[2023-06-21 04:00] VITALS: BP 133/73; PULSE 64; RESP 18; TEMP 97.1; O2SAT 95
[2023-06-21] MEDS: INSULIN LISPRO SLIDING SCALE 100 UNITS/ML VIAL SUBQ PRN ×4 (06:46→21:13)
[2023-06-21] MEDS: BLOOD GLUCOSE MONITORING 1 DEV DEV FS SCH ×4 (06:46→21:13)
--- NOTE | 2023-06-21 07:08 | NUR ---
ENDORSED PT TO DAY SHIFT NURSE FOR CONTINUITY OF CARE. PT IS STABLE.
--- NOTE | 2023-06-21 07:59 | NUR ---
RECEIVED REPORT FROM NEW ACCOUNT INTERVIEWER NURSE FOR CONTINUITY OF CARE. PT IS AWAKE, A&O X4. CURRENTLY ON ROOM AIR WITH NO APPARENT SIGNS OF ACUTE DISTRESS NOTED. IV SITE LOCATED AT RIGHT AC 22 GAUGE, APPEARS TO BE LEAKING, WILL ATTEMPT TO START NEW IV. RIGHT DIABETIC FOOT ULCER NOTED. POC DISCUSSED, CALL LIGHT WITHIN REACH, SAFETY MEASURES IN PLACE.
[2023-06-21 08:00] VITALS: PULSE 65; RESP 18; TEMP 97; O2SAT 99
--- NOTE | 2023-06-21 08:00 | NUR ---
Patient's Plan of Care was discussed and reviewed with HYDRAULIC JACK ADJUSTER: THONY
[2023-06-21] MEDS: LINEZOLID 600 MG TAB PO SCH ×2 (08:13→21:12)
--- NOTE | 2023-06-21 09:15 | NUR ---
FOOD AND DRUG INTERACTION CONSULT FOR PATIENT RECEIVED ON 06/21/23. PATIENT WILL BE CONSULTED TODAY 06/21/23 WITH HER FOLLOW UP. OREN QUIROGA RD
--- NOTE | 2023-06-21 11:30 | NUR ---
PATIENT BLOOD SUGAR LEVEL OF 323. 8 UNITS OF INSULIN WAS ADMINISTERED TO PATIENT.
[2023-06-21 12:00] VITALS: BP 93/64; PULSE 65; RESP 18; TEMP 97; O2SAT 99
[2023-06-21] MEDS: GAUZE TP SCH (12:19)
--- NOTE | 2023-06-21 12:20 | NUR ---
WOUND CARE NOTE: RIGHT FOOT S/P I&D SURGICAL WOUND WITH DR. MALLOY. WOUND ASSESSMENT DONE WITH PRIMARY NURSE JOMAR. RIGHT FOOT SURGICAL WOUND SUTURES 13 CM IN WIDTH, SMALL AMOUNT OF SEROSANGUINEOUS DRAINAGE NOTICE, NO ODOR, NO S/S OF WOUND DEHISCENCE, CAMILA WOUND SKIN MOIST, WRINKLE/ THIGH FROM BART BANDAGE. WOUND CARE DONE. PT TOLERATE WELL. POC DISCUSSED, ALL QUESTIONS ANSWERED. PT. PENDING SNF PLACEMENT FOR IV ANTIBIOTIC.
--- NOTE | 2023-06-21 12:22 | NUR ---
RIGHT FOOT DRESSING CHANGED BY WOUND CARE NURSE. PT TOLERATED WELL. NO BART BANDAGE WAS APPLIED. PICTURES TAKEN.
--- NOTE | 2023-06-21 12:29 | NUR ---
MORPHINE ADMINISTERED BY RN: ALEC FOR A PAIN LEVEL OF 9/10. PT TOLERATED WELL, WILL REASSESS PAIN LEVEL IN ONE HOUR.
--- NOTE | 2023-06-21 14:33 | NUR ---
06/21/23 RD FOLLOW UP COMPLETED PLEASE REFER TO NUTRITION ASSESSMENT UNDER CARE ACTIVITY FOR ESTIMATED NUTRITIONAL NEEDS. 1. CONTINUE CCHO 60 GRAM AND NA2GM DIET TOLERATED AND CHANGE TEXTURE FROM MECHANICAL SOFT TO CHOPPED. 2. DISCONTINUE PROSOURCE BID DUE TO PATIENT REFUSING TO WANT TO DRINK IT DUE TO THE TASTE. 3. RD RECOMMENDS NEPRO BID FOR PO INTAKE WHICH WILL PROVIDE 840 CALORIES AND 38 GRAMS OF PROTEIN. 4. RD ENCOURAGES PATIENT TO STAY AWAY FROM FOODS THAT CAN INTERACT WITH HER LINEZOLID MEDICATION ONCE SHE LEAVES THE HOSPITAL. 5. RD TO FOLLOW-UP 7 DAYS, LOW RISK OREN QUIROGA RD
[2023-06-21] MEDS: LORazepam 2 MG/ML VIAL IVP PRN (14:37)
--- NOTE | 2023-06-21 19:25 | NUR ---
RECEIVED PATIENT REPORT FROM SONIDO HADLEY., FOR CONTINUITY OF CARE, PATIENT STABLE IN BED,AOX3, DENIES PAIN AT THIS TIME. ON , WITH NO APPARENT S/SX OF ACUTE RESPIRATORY DISTRESS RESPIRATION EVEN AND UNLABORED, IV SITE RT. AC 22G. PATIENT SKIN IS INTACT. PATIENT IS AMBULATORY AND CONTINENT. POC AND WHITE BOARD UPDATED. ALL SAFETY MEASURES IN PLACE. BED IN LOW /LOCK POSITION. CALL LIGHT WITHIN REACH. WILL CONTINUE TO MONITOR
[2023-06-21 20:00] VITALS: BP 95/65; PULSE 78; RESP 20; TEMP 97.4; O2SAT 98
--- NOTE | 2023-06-21 20:00 | NUR ---
Patient's Plan of Care was discussed and reviewed with SONIDO: RAMEZ
--- NOTE | 2023-06-21 21:20 | NUR ---
PATIENT'S BLOOD SUGAR CHECK 231 4 UNITS OF HUMALOG INSULIN ADMINISTERED. PATIENT'S SCHEDULED MEDICATION LINEZOLID GIVEN. PATIENT'S TOLERATED WELL. PATIENT'S BED IN LOW/LOCKED POSITION, SIDE RAILS UP X2, CALL LIGHT WITHIN REACH. WILL CONTINUE TO MONITOR.
--- NOTE | 2023-06-21 23:28 | NUR ---
UNABLE TO ADMINISTER ABX. PT IV IS INFILTRATED. THERE IS PICC LINE ORDER. MESSAGE WAS LEFT FOR PICC LINE NURSE. WAITING FOR PICC PLACEMENT.
[2023-06-22] MEDS ORDERED: MORPHINE SULFATE 5 MG/ML VIAL IM SCH ×2 (01:20→05:05)
--- NOTE | 2023-06-22 01:41 | NUR ---
PATIENT WAS GIVEN AMBIEN, PT. TOLERATED WELL, PT. ASLEEP IN BED, NO S/SX OF ACUTE DISTRESS. RESPIRATION EVEN AND UNLABORED. ALL SAFETY MEASURES IN PLACE. CALL LIGHT WITHIN REACH, WILL CONTINUE TO MONITOR
[2023-06-22 02:00] VITALS: BP 94/68; PULSE 75; RESP 18; TEMP 98.6; O2SAT 96
[2023-06-22 04:00] VITALS: BP 95/70; PULSE 75; RESP 20; TEMP 98; O2SAT 99
[2023-06-22] MEDS ORDERED: MORPHINE SULFATE 10 MG/ML VIAL ONE (05:17)
[2023-06-22] MEDS: PIPERACILLIN/TAZOBACTAM 3.375 GM in DEXTROSE 5% 50 ML IV SCH ×3 (05:26→18:31)
--- NOTE | 2023-06-22 05:28 | NUR ---
PATIENT GIVEN 5MG OF MORPHINE ORDERED, WAISTED 5MG WITH FAIRY. PATIENT TOLERATED WELL. ALL SAFETY MEASURES IN PLACE. BED IN LOW/LOCKED POSITION. CALL LIGHT WITHIN REACH. WILL CONTINUE TO MONITOR
[2023-06-22] MEDS: BLOOD GLUCOSE MONITORING 1 DEV DEV FS SCH ×4 (06:49→21:09)
[2023-06-22] MEDS: INSULIN LISPRO SLIDING SCALE 100 UNITS/ML VIAL SUBQ PRN ×3 (06:50→21:13)
--- NOTE | 2023-06-22 07:15 | NUR ---
ENDORSED PATIENT TO DIMAS HERRON FOR CONTINUITY OF CARE
--- NOTE | 2023-06-22 07:16 | NUR ---
RECEIVED BEDSIDE REPORT FROM NIGHTSHIFT NURSE. PT STABLE NO SIGNS OF DISTRESS, NO REPORTS OF PAIN/DISCOMFORT. CALL LIGHT WITHIN REACH. NO FURTHER NEEDS ARE TO BE MET AT THIS TIME. WILL CONTINUE WITH CARE.
[2023-06-22 08:00] VITALS: PULSE 65; RESP 18; TEMP 97; O2SAT 98
[2023-06-22] MEDS: LINEZOLID 600 MG TAB PO SCH ×2 (10:02→21:10)
[2023-06-22] MEDS: MORPHINE SULFATE 2 MG/ML SYR IVP PRN ×3 (10:10→20:52)
--- NOTE | 2023-06-22 11:00 | NUR ---
UNABLE TO START IV ON PT. PICC LINE ORDER PLACED. EDUCATION PROVIDED BY , CONSENT OBTAINED. PICC LINE NURSE INSERTED PICC LINE, PT TOLERATED WELL. PLACEMENT VERIFIED BY RADIOLOGY.
[2023-06-22] MEDS: LORazepam 2 MG/ML VIAL IVP PRN ×2 (12:59→18:31)
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
[2023-06-22] MEDS: GAUZE TP SCH (13:21)
--- NOTE | 2023-06-22 19:26 | NUR ---
ENDORSED TO NIGHTSHIFT NURSE FOR CONTINUITY OF CARE. PT STABLE, RESTING IN BED, NO SIGNS OF DISTRESS. CALL LIGHT WITHIN REACH.
--- NOTE | 2023-06-22 19:27 | NUR ---
RECEIVED ENDORSEMENT FROM DAY SHIFT NURSE. PT IS AWAKE, ALERT AND VERBALLY RESPONSIVE. PICC LINE ON RIGHT UPPER ARM 2 LUMENS INTACT AND PATENT. DINNER 100%. PT IS ON CCHO DIET.
[2023-06-22 20:00] VITALS: BP 145/72; PULSE 73; PULSE 75; RESP 18; TEMP 98; TEMP 98.6; O2SAT 96; O2SAT 97
--- NOTE | 2023-06-22 20:52 | NUR ---
PT COMPLAINTS OF RIGHT FOOT PAIN 05/11, MORPHINE ADMINISTERED ORDER.
--- NOTE | 2023-06-22 21:13 | NUR ---
BLOOD SUGAR CHECKED = 374 = 10 UNITS HUMALOG INSULIN [id number]. PT IS AWAKE AND ALERT. NO SOB OR DISTRESS.
--- NOTE | 2023-06-22 21:52 | NUR ---
REASSESSMENT OF PAIN. PT ASLEEP, NO FACIAL GRIMACING.
[2023-06-23] VITALS (7 sets, daily range): BP systolic 91–141; BP diastolic 71–88; PULSE 65–83; RESP 17–20; TEMP 96.9–98; O2SAT 97–100
[2023-06-23] MEDS: PIPERACILLIN/TAZOBACTAM 3.375 GM in DEXTROSE 5% 50 ML IV SCH ×4 (00:38→17:57)
[2023-06-23] MEDS: LORazepam 2 MG/ML VIAL IVP PRN ×4 (00:39→18:07)
--- NOTE | 2023-06-23 00:39 | NUR ---
PT COMPLAINTS OF ANXIETY, LORAZEPAM ADMINISTERED ORDERED.
[2023-06-23] MEDS: MORPHINE SULFATE 2 MG/ML SYR IVP PRN ×4 (05:37→21:03)
--- NOTE | 2023-06-23 05:37 | NUR ---
PT COMPLAINTS OF PAIN 05/11, MORPHINE ADMINISTERED ORDERED.
--- NOTE | 2023-06-23 06:30 | NUR ---
PT COMPLAINTS OF ANXIETY, LORAZEPAM ADMINISTERED ORDER.
[2023-06-23] MEDS: BLOOD GLUCOSE MONITORING 1 DEV DEV FS SCH ×4 (06:38→21:13)
[2023-06-23] MEDS: INSULIN LISPRO SLIDING SCALE 100 UNITS/ML VIAL SUBQ PRN ×4 (06:39→21:17)
--- NOTE | 2023-06-23 06:39 | NUR ---
BLOOD SUGAR CHECKED = 345 = 8 UNITS HUMALOG INSULIN
--- NOTE | 2023-06-23 06:47 | NUR ---
REASSESSMENT OF PAIN. PT IS ASLEEP. NO FACIAL GRIMACING. NO SOB OR DISTRESS.
--- NOTE | 2023-06-23 07:17 | NUR ---
receive the patient from the maintenance mechanic 2nd shift william Sullivan in rm [address] aox4 admitting diagnosis of right stump amputation . for pain mgt , antibiotics . will continue to monitor
[2023-06-23] MEDS: LINEZOLID 600 MG TAB PO SCH ×2 (09:12→21:03)
[2023-06-23] MEDS: GAUZE TP SCH (12:35)
--- NOTE | 2023-06-23 18:56 | NUR ---
will endorse to shift nurse manager rn for continuity of care . for pain mgt , antibiotics
[2023-06-23] MEDS ORDERED: LORazepam 2 MG/ML VIAL ONE (22:26)
[2023-06-24] MEDS: PIPERACILLIN/TAZOBACTAM 3.375 GM in DEXTROSE 5% 50 ML IV SCH ×4 (00:14→17:45)
[2023-06-24] MEDS: MORPHINE SULFATE 4 MG/ML SYR IVP PRN ×5 (01:28→20:54)
[2023-06-24 04:00] VITALS: BP 155/80; PULSE 66; RESP 22; TEMP 96.5; O2SAT 96
[2023-06-24] MEDS: LORazepam 2 MG/ML VIAL IVP PRN (04:05)
[2023-06-24] MEDS: BLOOD GLUCOSE MONITORING 1 DEV DEV FS SCH ×4 (06:29→20:55)
[2023-06-24] MEDS: INSULIN LISPRO SLIDING SCALE 100 UNITS/ML VIAL SUBQ PRN ×4 (06:30→21:02)
--- NOTE | 2023-06-24 06:30 | NUR ---
CHG BATH PROVIDED
--- NOTE | 2023-06-24 07:15 | NUR ---
RECEIVED REPORT FROM CATALYST SUPERVISOR NURSE FOR CONTINUITY OF CARE. PT IS STABLE.
[2023-06-24 08:00] VITALS: BP 101/70; PULSE 72; RESP 16; TEMP 97.1; O2SAT 97
[2023-06-24] MEDS: LINEZOLID 600 MG TAB PO SCH ×2 (10:32→20:54)
[2023-06-24] MEDS: GAUZE TP SCH (12:35)
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
[2023-06-24 16:00] VITALS: BP 105/71; PULSE 69; RESP 16; TEMP 97.3; O2SAT 96
--- NOTE | 2023-06-24 19:01 | NUR ---
ENDORSED TO BIODIESEL PLANT OPERATIONS ENGINEER NURSE FOR CONTINUITY OF CARE. PT STABLE AT THIS TIME.
--- NOTE | 2023-06-24 19:40 | NUR ---
NOTIFIED MD REGARDING PATIENT'S BLOOD PRESSURE OF 81/55 PULSE 71. PATIENT IS ASYMPTOMATIC REQUESTING PAIN MEDICATION, AWAITING TO RECEIVE ORDERS FROM MD.
[2023-06-24] MEDS ORDERED: NACL 0.9% 1,000 ML IV ONE (19:50)
--- NOTE | 2023-06-24 19:51 | NUR ---
PER STEVIE GIVE 1L BOLUS
[2023-06-24 20:00] VITALS: BP 81/55; PULSE 71; RESP 20; TEMP 98; O2SAT 100
[2023-06-24 21:00] VITALS: BP 127/60
[2023-06-25] MEDS: PIPERACILLIN/TAZOBACTAM 3.375 GM in DEXTROSE 5% 50 ML IV SCH ×5 (00:43→23:49)
--- NOTE | 2023-06-25 00:45 | NUR ---
DRESSING CHANGED COMPLETED PER ORDERS. WOUND BED WITH NO S/S OF INFECTION, SUTURES INTACT, NO DRAINAGE OR ODOR NOTED. CLEANSED WOUND WITH NS PATTED DRY, APPLIED IODINE SOAKED GAUZE AND WRAPPED WITH KERLIX.
[2023-06-25] MEDS: MORPHINE SULFATE 4 MG/ML SYR IVP PRN ×5 (00:53→18:35)
[2023-06-25] MEDS: LORazepam 2 MG/ML VIAL IVP PRN ×5 (03:40→20:53)
[2023-06-25 04:00] VITALS: BP 138/67; PULSE 63; RESP 16; TEMP 96.7; O2SAT 97
[2023-06-25] MEDS: BLOOD GLUCOSE MONITORING 1 DEV DEV FS SCH ×4 (06:30→20:59)
[2023-06-25] MEDS: INSULIN LISPRO SLIDING SCALE 100 UNITS/ML VIAL SUBQ PRN ×5 (06:32→20:59)
--- NOTE | 2023-06-25 07:15 | NUR ---
RECEIVED REPORT FROM INVESTIGATIONS DIRECTOR NURSE FOR CONTINUITY OF CARE. PT IS STABLE.
[2023-06-25 08:00] VITALS: BP 111/68; PULSE 71; RESP 16; TEMP 97.1; O2SAT 100
[2023-06-25] MEDS: LINEZOLID 600 MG TAB PO SCH ×2 (09:34→21:21)
[2023-06-25] MEDS: GAUZE TP SCH (13:00)
--- NOTE | 2023-06-25 14:47 | NUR ---
Shoe Sprayer: merlin Argueta from [facility], in to see patient for a potential admission. The patient was unarousable as she had just been given Ativan. Kendall was unable to complete an interview. He advised he would be in tomorrow to see the patient for the possibility of being able to accept the patient. [facility]:
[2023-06-25 16:00] VITALS: BP 124/57; PULSE 72; RESP 18; TEMP 98; O2SAT 100
--- NOTE | 2023-06-25 19:50 | NUR ---
RECEIVED PT FROM AM NURSE FOR CONTINUITY OF CARE. PT IS STABLE
--- NOTE | 2023-06-25 19:57 | NUR ---
ENDORSED TO SALES APPOINTMENT COORDINATOR NURSE FOR CONTINUITY OF CARE. PT TABLE AT THIS TIME.
[2023-06-25 20:00] VITALS: BP 133/67; PULSE 73; RESP 16; RESP 18; TEMP 97.6; O2SAT 97
[2023-06-26] MEDS: MORPHINE SULFATE 2 MG/ML SYR IVP PRN ×2 (01:45→05:48)
[2023-06-26 04:00] VITALS: BP 117/73; PULSE 76; RESP 18; TEMP 97.9; O2SAT 100
[2023-06-26] MEDS: LORazepam 2 MG/ML VIAL IVP PRN ×2 (04:03→08:25)
[2023-06-26] MEDS: PIPERACILLIN/TAZOBACTAM 3.375 GM in DEXTROSE 5% 50 ML IV SCH ×4 (05:26→23:44)
--- NOTE | 2023-06-26 07:00 | NUR ---
PATIENT REFUSED INSULIN. BLOOD GLUCOSE IS 328. EXPLAINED THE RISK AND BENEFITS BUT STILL REFUSED
[2023-06-26] MEDS: BLOOD GLUCOSE MONITORING 1 DEV DEV FS SCH ×4 (07:02→20:48)
[2023-06-26 08:00] VITALS: BP 122/87; PULSE 74; RESP 18; TEMP 98; O2SAT 100
[2023-06-26] MEDS: LINEZOLID 600 MG TAB PO SCH ×2 (08:25→20:46)
[2023-06-26] MEDS ORDERED: HYDROcodone/APAP 10/325 MG 1 TAB TAB PO PRN (09:10)
[2023-06-26] MEDS ORDERED: HYDROcodone/APAP 5/325 MG 1 TAB TAB PO PRN (09:10)
[2023-06-26] MEDS ORDERED: PENICILLIN G BENZATHINE L-A 1.2 MU/2 ML SYR IM SCH (11:45)
--- NOTE | 2023-06-26 12:30 | NUR ---
42YR OLD FEMALE COME FOR R. FOOT DIABETIC ULCER/OSTEOMYELITIS W/ S/P AMPUTATION. PATIENT IS TREAT WITH ANTIBIOTIC FOR OSTEOMYELITIS VIA PICC AT [facility], & PATIENT LIKE REQUESTING PRN IV PUSH MORPHINE ROUTINE. AROUND 1200, PATIENT REQUESTING MORPHINE, AND NURSE INFORM PATIENT THAT MORPHINE IV PUSH SWITCH TO PO NORCO 10 & NORCO 5 FOR PAIN. THEN PATIENT ASKIN GIVE HER IV PUSH ATIVAN. WHEN PATIENT HEARD THAT IV PUSH ATIVAN IS ALSO D/C. PATIENT START SHOUT TO THE HALLWAY. NURSE END UP WITH ASKING HELP FORM SECURITY DEPARTMENT. PATIENT USED A LOT "F" WORDS TOWARD STAFFS. AFTER NURSE INFORM PATIENT THAT SHE CAN AMA IF SHE WANTS TO. PATIENT TOOK OFF HER GOWN AND TOPLESS LYING IN THE BED PRETENDING SLEEPING UNTIL 1800. WILL CONTINUE TO MONITOR AND ENDORSE PATIENT TO PM SHIFT NURSE.
[2023-06-26] MEDS: INSULIN LISPRO SLIDING SCALE 100 UNITS/ML VIAL SUBQ PRN ×3 (12:40→20:48)
[2023-06-26] MEDS: GAUZE TP SCH (13:06)
--- NOTE | 2023-06-26 17:00 | NUR ---
Kendall truck repair service estimator from [facility], in to see patient for a potential admission. The patient was not engaging as presented as bothered about Kendall's attempt to talk to her about a potential admission. The patient repeatedly asked about getting social security. She did not answer any of her questions. Kendall explained his desire to try to offer help ad assistance to the patient, but she was not receptive of his attempts. Later SS/CM was advised that the patient has a conservator that called to the unit to speak with a nurse. I called the "conservator" back. I spoke with Jannette Morin who identified herself as a public health nurse. Per Jannette, she is not the patient's conservator, but the patient's assigned public health nurse. She provided a timeline as to how the patient became involved with [facility]. The patient was previously at [facility] where she tested positive for syphilis. The patient was discharged to [facility]. On 06.06.23 the patient AMA'd from [facility], which is also the same day a confirmatory test was completed and the patient tested positive again for syphilis. Per Jannette, since her AMA, she has been trying to find the patient in order to insure that the patient is receiving treatment. We discussed discharge planning and the barriers that are presenting itself: age, drug use, patient's non compliance, patient's frequent AMAs, etc. The PHN did advise she has spoken with the IP nurse to advise of the patient's need to start treatment for syphilis. At this time, the patient remains in need of IV Antibiotics and a facility is most appropriate for her. Jannette Morin, public health nurse: [phone]
[2023-06-26 18:00] VITALS: BP 95/56; PULSE 66; RESP 18; TEMP 98; O2SAT 100
--- NOTE | 2023-06-26 19:30 | NUR ---
RECEIVED PT FROM AM NURSE FOR CONTINUITY OF CARE. PT IS STABLE
[2023-06-26] MEDS ORDERED: HALOPERIDOL IM 5 MG/ML VIAL IM ONE (19:40)
[2023-06-26 20:00] VITALS: PULSE 70; RESP 18; TEMP 97.5; O2SAT 98
--- NOTE | 2023-06-26 21:45 | NUR ---
DR MALLOY CAME TO SEE THE PT AND CHANGED THE DRESSING OF PATIENT'S RIGHT FOOT STUMP.PT TOLERATED WELL
[2023-06-27] MEDS ORDERED: ESCITALOPRAM 20 MG TAB PO ONE (01:20)
[2023-06-27] MEDS ORDERED: HALOPERIDOL IM 5 MG/ML VIAL IM ONE (03:09)
--- NOTE | 2023-06-27 03:20 | NUR ---
PATIENT WENT AMA, EXPLAINED RISKS AND BENEFITS BUT PT STILL WANTS TO GO AMA. PATIENT WAS DISRUPTIVE BECAUSE SHE CANNOT GET HER ANXIETY MEDICINE WHICH WAS DISCONTINUED . PICC LINE REMOVED, NOTIFIED, HOUSE SUPRVISOR AWARE, UBER PROVIDED .
[2023-06-27] MEDS ORDERED: ESCITALOPRAM 20 MG TAB PO SCH (09:00)
[2023-06-27] MEDS ORDERED: LINEZOLID 600 MG TAB PO SCH ×2 (09:50→21:00)
== END 2023-06-27 03:20 | disposition left against medical advice (07) | DRG 305 ==
LOC: MED 01:53 → MTU 10:26
PROVIDERS: ADMIT Family Medicine; ATTEND Family Medicine
PROC: 0QBL0ZZ Excision of Right Tarsal, Open Approach (ICD-10-PCS; 2023-06-17)
PROC: 0Y6M0Z0 Detachment at Right Foot, Complete, Open Approach (ICD-10-PCS; principal; 2023-06-17 11:30)
PROC: 02HV33Z Insertion of Infusion Device into Superior Vena Cava, Percutaneous Approach (ICD-10-PCS; 2023-06-22)
PROC: B548ZZA Ultrasonography of Superior Vena Cava, Guidance (ICD-10-PCS; 2023-06-22)
DX: T87.43 Infection of amputation stump, right lower extremity (principal); E43 Unspecified severe protein-calorie malnutrition; R65.10 Systemic inflammatory response syndrome (SIRS) of non-infectious origin without acute organ dysfunction; E11.621 Type 2 diabetes mellitus with foot ulcer; E11.51 Type 2 diabetes mellitus with diabetic peripheral angiopathy without gangrene; M86.8X7 Other osteomyelitis, ankle and foot; D50.9 Iron deficiency anemia, unspecified; L03.115 Cellulitis of right lower limb; E83.42 Hypomagnesemia; I10 Essential (primary) hypertension; M76.61 Achilles tendinitis, right leg; E11.69 Type 2 diabetes mellitus with other specified complication; Z53.29 Procedure and treatment not carried out because of patient's decision for other reasons; Y83.5 Amputation of limb(s) as the cause of abnormal reaction of the patient, or of later complication, without mention of misadventure at the time of the procedure; E11.65 Type 2 diabetes mellitus with hyperglycemia; F32.A Depression, unspecified; E87.6 Hypokalemia; Z86.73 Personal history of transient ischemic attack (TIA), and cerebral infarction without residual deficits; Z87.891 Personal history of nicotine dependence; Z85.118 Personal history of other malignant neoplasm of bronchus and lung; Z79.891 Long term (current) use of opiate analgesic; Z79.1 Long term (current) use of non-steroidal anti-inflammatories (NSAID); Y92.89 Other specified places as the place of occurrence of the external cause
CPT/HCPCS: 36415; 71045; 73630; 80048; 80053; 80305; 81001; 82948; 83036; 83605; 83735; 84702; 85025; 85610; 85651; 85730; 86140; 87040; 87070; 87075; 87081; 87086; 87186; 87205; 88304; 88305; 88311; 93005; 96365; 96375; 97110; 97112; 97116; 97163-GP; 97530; 99285; J0561; J1170; J1630; J1815; J2060; J2270; J2405; J2543; J2704; J3010; J3370; J3475; J3480; J3490; J7030; J7060; Q0092

== ENCOUNTER 2023-06-27 06:40 | Inpatient (IN) | payer MEDICAID ==
[~2023-06-27] VITALS: Ht 160 cm; Wt 58.5 kg
--- NOTE | 2023-06-27 06:49 | NUR ---
PT MINA KUHN. TAKEN TO BED 12
[2023-06-27 06:53] VITALS: BP 127/85; PULSE 78; RESP 15; TEMP 97.9; O2SAT 100
--- NOTE | 2023-06-27 07:15 | NUR ---
PT IN PAIN AND 10/10 PAIN AND HAS N/V. ER MD KAY MADE AWARE.
--- NOTE | 2023-06-27 07:18 | NUR ---
Pt report given to Lalitha COCHRAN. Transfer of care at this time.
--- NOTE | 2023-06-27 07:55 | NUR ---
AT EVALUATING PT. PT INFORMED THE DOCTOR THAT SHE HAD LEFT [facility] AT 0400 TODAY. PT STATED, "I GOT ANXIETY. THE MEDICATION WASN'T WORKING. WE HAVE STAIRS WHERE I LIVE AND I LOST MY BALANCE." PT C/O PAIN AT AMPUTATION SITE. TO ORDER PAIN MEDS.
--- NOTE | 2023-06-27 08:03 | NUR ---
INFORMED THE PT THAT SHE WOULD BE READMITTED INTO THE HOSPITAL WITH THE PLAN FOR HER TO BE TRANSFERED TO A SNF. PT CURRENTLY C/O NAUSEA AND PAIN.
[2023-06-27] MEDS ORDERED: ONDANSETRON 4 MG/2 ML VIAL IVP ONE (08:05)
[2023-06-27] MEDS ORDERED: PIPERACILLIN/TAZOBACTAM 3.375 GM in DEXTROSE 5% 50 ML IV ONE (08:05)
[2023-06-27] MEDS ORDERED: NACL 0.9% 1,000 ML IV ONE (08:05)
[2023-06-27] MEDS ORDERED: MORPHINE SULFATE 4 MG/ML SYR IVP ONE (08:05)
[2023-06-27] MEDS ORDERED: PIPERACILLIN/TAZOBACTAM 3.375 GM VIAL IV ONE (08:24)
--- NOTE | 2023-06-27 08:31 | NUR ---
I SPOKE WITH NIKOLAI Peña, BEAUTY CULTURIST APPRENTICE FOR [employer], VERBAL AUTHORIZATION RECEIVED TO ADMIT PT.
[2023-06-27 08:45] LABS: BASOPHILS % (AUTO) 0.4 % (0.0-2.0); EOSINOPHILS # (AUTO) 0.1 K/uL (0-0.4); EOSINOPHILS % (AUTO) 0.4 % (0.0-4.0); HEMATOCRIT 34.4 % (36-48); HEMOGLOBIN 10.8 g/dL (12.0-16.0); LYMPHOCYTES # (AUTO) 1.4 K/uL (2.5-16.5); LYMPHOCYTES % (AUTO) 11.3 % (20.5-51.1); MEAN CORPUSCULAR HEMOGLOBIN 24 pg (27-31); MEAN CORPUSCULAR HGB CONC 31 g/dL (33-37); MEAN CORPUSCULAR VOLUME 76.2 fL (80-94); MONOCYTES # (AUTO) 0.4 K/uL (0.8-1.0); MONOCYTES % (AUTO) 3.3 % (1.7-9.3); NEUTROPHILS # (AUTO) 10.4 K/uL (1.8-7.7); NEUTROPHILS % (AUTO) 84.6 % (42.2-75.2); PLATELET COUNT (AUTO) 327 K/uL (140-450); RED BLOOD CELL COUNT(AUTO) 4.52 MIL/uL (4.20-5.40); RED CELL DISTRIBUTION WIDTH 18.4 % (11.6-13.7); WHITE BLOOD COUNT (AUTO) 12.3 K/uL (4.8-10.8)
--- NOTE | 2023-06-27 09:27 | NUR ---
Med student and Dr. Bertrand evaluating the pt's RLE amputation site. Surgical site/sutures all intact. No sign of infection. No sign of drainage. Wound irrigated with saline, cleansed with betadine, 4x4 gauze placed over wound, covered with abd pads, secured with Kerlix and tape.
[2023-06-27 09:35] LABS: ANION GAP 16.5 (8-16); CARBON DIOXIDE 26.5 mmol/L (21-32); CREATININE 0.9 mg/dL (0.6-1.3)
--- NOTE | 2023-06-27 10:00 | NUR ---
INFORMED MD OF THE PT'S RETURN OF PAIN. NO FURTHER ORDERS WERE GIVEN BY MD. PT MADE AWARE THAT NO NEW ORDERS WERE GIVEN.
--- NOTE | 2023-06-27 10:18 | NUR ---
Pt report given to DIMAS MEI. Transfer of care at this time. Pt. to go to room 116. Pt escorted to room by aicha by EMT LOYDA. Pt left in stable condtion with R stump dressing intact.
[2023-06-27 10:30] VITALS: RESP 17; TEMP 97.9; O2SAT 100
[2023-06-27] MEDS ORDERED: ACETAMINOPHEN 325 MG TAB PO PRN (10:30)
[2023-06-27] MEDS ORDERED: traMADol 50 MG TAB PO PRN (10:30)
--- NOTE | 2023-06-27 10:30 | NUR ---
SOFTWARE ASSET MANAGEMENT ANALYST GAVE REPORT FOR PT FOR TRANSFER OF CARE, PT ARRIVED IN THE UNIT VIA GURNEY. PT IS STABLE, NO SIGN OF DISTRESS. ORIENTED TO THE NEW ENVIRONMENT, TV, CALL LIGHT, BATHROOM. CALL LIGHT WITHIN REACH.
--- NOTE | 2023-06-27 11:14 | NUR ---
PATIENT HAS BEEN SCREENED AND CATEGORIZED LOW NUTRITION RISK. PATIENT WILL BE SEEN WITHIN 7 DAYS OF ADMISSION. 07/04/[address]
[2023-06-27] MEDS ORDERED: PIPERACILLIN/TAZOBACTAM 3.375 GM in DEXTROSE 5% 50 ML IV SCH (12:00)
[2023-06-27] MEDS: PIPERACILLIN/TAZOBACTAM 3.375 GM in DEXTROSE 5% 50 ML IV SCH ×5 (12:00→23:26)
--- NOTE | 2023-06-27 12:00 | NUR ---
PT TOOK PO MEDS BUT REFUSED TO BE HOOKED IN THE IV FOR IV ABX AND SHE REFUSED ACHS TOO. SHE WENT TO SHOWER 2X AND SOAKED HER FOOT. DOESN'T WANT ME TO COVER BECAUSE SHE SAID SHE WILL SHOWER MORE. SHE REFUSED EVEN AFTER EXPLANATION.CALL LIGHT WITHIN REACH.
[2023-06-27] MEDS: GABAPENTIN 300 MG CAP PO SCH ×2 (13:26→18:41)
--- NOTE | 2023-06-27 14:00 | NUR ---
WENT TO PT'S ROOM, PT CURRENTLY SLEEPING. CALL LIGHT WITHIN REACH.
[2023-06-27 16:00] VITALS: BP 192/100; PULSE 19; RESP 80; TEMP 98; O2SAT 100
--- NOTE | 2023-06-27 16:30 | NUR ---
BP IS HIGH THE PT IS AGITATED, CHARGE NURSE INFORMED.
--- NOTE | 2023-06-27 16:30 | NUR ---
PT REFUSED ACHS AND RECHECK OF VS. SHE STILL CONTINUED TO GO ON SHOWERS EVEN WITH REPEATED EXPLANATION.
--- NOTE | 2023-06-27 18:15 | NUR ---
NEW IV WAS PUT. SHE KEPT MOVING AND WANTED TO GO TO THE TOILET AND SHOWER AGAIN, IV GOT INFILTRATED, TOLD HER I WOULD REMOVE IT BUT SHE TOLD ME TO LEAVE AND LET HER GO TO THE SHOWER. PT IS RUDE TO RN AND HYDROSTATIC TESTER.
[2023-06-27] MEDS: LINEZOLID 600 MG TAB PO SCH (18:41)
--- NOTE | 2023-06-27 19:30 | NUR ---
GAVE BEDSIDE REPORT TO LOOM OPERATOR APPRENTICE NURSE FOR CONTINUITY OF CARE. PT IS STILL IN THE SHOWER, PT IS STABLE.
--- NOTE | 2023-06-27 19:31 | NUR ---
RECEIVED BEDSIDE REPORT FROM JHON COCHRAN FOR CONTINUITY OF CARE. PATIENT IS AWAKE AND STABLE. A&OX4. ABLE TO FOLLOW COMMANDS AND VERBALIZE NEEDS. DENIES PAIN. ON ROOM AIR WITH NO APPARENT S/SX OF ACUTE DISTRESS. RESPIRATIONS EVEN AND UNLABORED. PATIENT C/O N/V. PROVIDED EMESIS BAG. POC AND WHITE COMMUNICATION BOARD UPDATED. ALL SAFETY MEASURES IN PLACE. CALL LIGHT WITHIN REACH. ENCOURAGED TO USE CALL LIGHT FOR ANY NEEDS/ASSISTANCE. BED IN LOW/LOCKED POSITION. SIDE RAILS X2 UP. WILL CONTINUE TO MONITOR.
[2023-06-27 20:00] VITALS: BP 150/60; PULSE 16; RESP 79; TEMP 98.3; TEMP 98.7; O2SAT 98
--- NOTE | 2023-06-27 20:00 | NUR ---
Patient's Plan of Care was discussed and reviewed with SONIDO: ANNY
--- NOTE | 2023-06-27 21:10 | NUR ---
COLLECTED VOIDED URINE FOR DRUG SCREEN PER MD ORDER. TOLERATED WELL. DENIES PAIN. C/O N/V. WILL CONTACT MD FOR PRN ORDER. RESPIRATIONS EVEN AND UNLABORED WITH NO APPARENT S/SX OF ACUTE DISTRESS. PROVIDED BLANKET AND ICE CHIPS PER PATIENT REQUEST. WHITE COMMUNICATION BOARD UPDATED. ALL SAFETY MEASURES IN PLACE. CALL LIGHT WITHIN REACH. BED IN LOW/LOCKED POSITION. WILL CONTINUE TO MONITOR.
[2023-06-27 21:53] LABS: BARBITURATE, URINE NEGATIVE ng/ml (NEG <=200); BENZODIAZEPINE, URINE POSITIVE ng/mL (NEG <=200); CANNABINOID, URINE NEGATIVE ng/mL (NEG <=50); COCAINE, URINE NEGATIVE ng/mL (NEG <=300); OPIATE, URINE POSITIVE ng/mL (NEG <=2000); PHENCYCLIDINE SCREEN,URINE NEGATIVE ng/mL (NEG <=25)
[2023-06-27] MEDS ORDERED: ONDANSETRON 4 MG/2 ML VIAL IVP PRN (22:05)
--- NOTE | 2023-06-27 23:10 | NUR ---
ATTEMPTED TO INSERT IV X2. BOTH ATTEMPTS VEIN BLEW. PATIENT KEEPS YELLING. RE-ORIENTED PATIENT TO HOSPITAL SURROUNDING AND OFFERED THERAPEUTIC MEASURES TO INCREASE COMFORT. REPOSITIONED PATIENT AND VERBALLY COACHED PATIENT TO TAKE DEEP BREATHS SO SHE CAN RELAX.
[2023-06-27] MEDS: ONDANSETRON 4 MG/2 ML VIAL IM/IVP PRN (23:36)
--- NOTE | 2023-06-27 23:40 | NUR ---
ADMINISTERED ZOFRAN IM PRN PER MD ORDER. TOLERATED WELL. RESPIRATIONS EVEN AND UNLABORED WITH NO APPARENT S/SX OF ACUTE DISTRESS. WHITE COMMUNICATION BOARD UPDATED. ALL SAFETY MEASURES IN PLACE. CALL LIGHT WITHIN REACH. BED IN LOW/LOCKED POSITION. WILL CONTINUE TO MONITOR.
--- NOTE | 2023-06-28 01:10 | NUR ---
ATTEMPTED TO REINSERT IV BUT PATIENT IS CURRENTLY SLEEPING DEEPLY. ATTEMPTED TO AWAKE PATIENT BUT PATIENT IS CURRENTLY NON-AROUSABLE. FLACC=0. CHEST IS RISING AND FALLING SYMMETRICALLY. RESPIRATIONS EVEN AND UNLABORED WITH NO APPARENT S/SX OF ACUTE DISTRESS. WILL RE-ATTEMPT IV INSERTION WHEN PATIENT IS AWAKE. WHITE COMMUNICATION BOARD UPDATED. ALL SAFETY MEASURES IN PLACE. CALL LIGHT WITHIN REACH. BED IN LOW/LOCKED POSITION. WILL CONTINUE TO MONITOR.
[2023-06-28] MEDS: LORazepam 0.5 MG TAB PO PRN (03:15)
--- NOTE | 2023-06-28 03:15 | NUR ---
ATTEMPTED TO INSERT IV. PATIENT KEEPS MOVING AROUND AND VERBALIZES, "I'M SORRY, I JUST HAVE TO KEEP ON MOVING." WHILE SEARCHING FOR A VIABLE VEIN, PATIENT STATED, "THIS IS POINTLESS BECAUSE THE IV WILL BE TAKEN OUT ANYWAY BECAUSE I KEEP MOVING. THIS WILL BE EASIER WITH A PICC LINE." REMINDED PATIENT THAT IV MEDICATIONS ARE DUE SO ESTABLISHMENT OF IV IS IMPORTANT AT THIS TIME. PATIENT ADAMANT ABOUT WAITING FOR PICC LINE IN THE MORNING. WILL ENDORSE TO DAY SHIFT. PATIENT IS ALSO C/O AGITATION. ADMINISTERED PRN PO PER MD ORDER. TOLERATED WELL. PROVIDED ICE CHIPS PER PATIENT REQUEST. WHITE COMMUNICATION BOARD UPDATED. ALL SAFETY MEASURES IN PLACE. CALL LIGHT WITHIN REACH. BED IN LOW/LOCKED POSITION. WILL CONTINUE TO MONITOR.
[2023-06-28 04:00] VITALS: BP 168/72; PULSE 79; RESP 17; TEMP 98.5; O2SAT 97
--- NOTE | 2023-06-28 05:10 | NUR ---
PATIENT STABLE AND ASLEEP WITH NO FACIAL GRIMACING. FLACC=0. CHEST IS RISING AND FALLING SYMMETRICALLY. RESPIRATIONS EVEN AND UNLABORED WITH NO APPARENT S/SX OF ACUTE DISTRESS. WHITE COMMUNICATION BOARD UPDATED. ALL SAFETY MEASURES IN PLACE. CALL LIGHT WITHIN REACH. BED IN LOW/LOCKED POSITION. WILL CONTINUE TO MONITOR.
[2023-06-28] MEDS: PIPERACILLIN/TAZOBACTAM 3.375 GM in DEXTROSE 5% 50 ML IV SCH ×4 (05:53→23:23)
--- NOTE | 2023-06-28 07:10 | NUR ---
ENDORSED PATIENT TO JOMAR HEAD FOR CONTINUITY OF CARE. PATIENT IS STABLE.
--- NOTE | 2023-06-28 07:32 | NUR ---
RECEIVED REPORT FROM CHOPPED STRAND OPERATOR NURSE FOR CONTINUITY OF CARE. PATIENT IS AWAKE, ALERT AND ORIENTED X4, ON BED REST AND CONTINENT. PATIENT HAS RIGHT ANKLE AMPUTATION, SUTURES PRESENT. CURRENTLY ON ROOM AIR WITH NO SIGNS OF ACUTE RESPIRATORY DISTRESS NOTED. NO IV ACCESS AT THIS TIME. PT SET TO HAVE MIDLINE PUT IN PLACE. PT AWARE, CONSENT SIGNED.
[2023-06-28 08:00] VITALS: PULSE 85; RESP 18; TEMP 98.3; O2SAT 100
[2023-06-28] MEDS: GABAPENTIN 300 MG CAP PO SCH ×3 (08:21→16:56)
[2023-06-28] MEDS: lisinopriL 20 MG TAB PO SCH (08:21)
[2023-06-28] MEDS: LINEZOLID 600 MG TAB PO SCH ×2 (08:22→22:56)
[2023-06-28] MEDS: ESCITALOPRAM 20 MG TAB PO SCH (08:24)
--- NOTE | 2023-06-28 08:25 | NUR ---
PT EXPERIENCING NAUSEA AND VOMITING. ZOFRAN ADMINISTERED IM PRN. NO BLOOD IN VOMIT NOTED.
[2023-06-28] MEDS: ONDANSETRON 4 MG/2 ML VIAL IM/IVP PRN ×2 (08:28→23:24)
[2023-06-28] MEDS ORDERED: DEXTROSE 50% 50 ML SYR IVP PRN (09:05)
--- NOTE | 2023-06-28 09:45 | NUR ---
SCHEDULED MEDICATIONS ADMINISTERED, PT TOLERATED WELL.
--- NOTE | 2023-06-28 10:47 | NUR ---
WOUND CARE NOTE: PT. CAME BACK FROM [place]. PT IS NOT COOPERATE, REFUSE WOUND PHOTO, REFUSE WOUND ASSESSMENT, RISK AND BENEFIT EXPLAINED, AFTER FEW ATTEMPTS PT. ALLOWS TO HAVE WOUND DRESSING APPLY. RIGHT FOOT SURGICAL WOUND 13CM WITH WOUND DEHISCENCE LOOSE SUTURES TO MEDIAL ASPECT, WOUND BED 100% RED , MOIST CAMILA-WOUND SKIN SCABBING NO ODOR. PT LAST SEEN DR. MALLOY 06/26/2023, RECOMMEND CLEANSE RIGHT FOOT WOUND APPLY WITH MOIST BETADINE 4X4 GAUZE, COVER WITH DRY DRESSING AND WRAP WITH KERLIX ROLL DAILY AND PRN IF SOILING. POC DISCUSSED WITH BOTH PRIMARY NURSE JOMAR AND CHARGE NURSE MICHELLE. MAY HAVE DOCTOR MELLISSA CONTINUE HIS PLAN. POC DISCUSSED WITH PT. PT. IS NOT ALERT, PT. VERY SLEEPY AND IRRITABLE WHEN TRY TO DISCUSS WITH HER
--- NOTE | 2023-06-28 11:15 | NUR ---
MID LINE INSERTED AT LEFT UPPER ARM, DOUBLE LUMEN.
[2023-06-28] MEDS: BLOOD GLUCOSE MONITORING 1 DEV DEV FS SCH ×3 (11:30→22:55)
[2023-06-28] MEDS: INSULIN LISPRO SLIDING SCALE 100 UNITS/ML VIAL SUBQ PRN ×3 (13:12→23:03)
--- NOTE | 2023-06-28 13:12 | NUR ---
PT REFUSED GABAPENTIN ADMINISTRATION. BLOOD SUGAR WAS 370. PT DID ALLOW ME TO ADMINISTER 10 UNITS OF HUMALOG, WILL CONTINUE TO MONITOR.
[2023-06-28] MEDS: GAUZE TP SCH (13:13)
--- NOTE | 2023-06-28 17:04 | NUR ---
Sheltered Workshop Executive Director: Attempted to see patient upon her return back to the hospital. The patient was resting in bed and was not available to complete an assessment at this time. Further follow up will continue to take place.
--- NOTE | 2023-06-28 18:06 | NUR ---
PT REFUSED ZOSYN IV. STATED SHE DID NOT WANT TO BE TOUCHED AND LEFT ALONE. WILL CONTINUE MONITORING.
[2023-06-28 20:00] VITALS: PULSE 70; RESP 18; TEMP 98.8; O2SAT 100
--- NOTE | 2023-06-28 23:30 | NUR ---
C/O SLEEPLESSNESS , REQUESTING SLEEPING PILL . WILL REFER .
[2023-06-29] VITALS: BP 132/82; PULSE 70; RESP 18; TEMP 98.8; O2SAT 96
--- NOTE | 2023-06-29 00:30 | NUR ---
NO RESPONSE FROM DR. HUBBARD , WILL RE VISIT THE PT .
--- NOTE | 2023-06-29 02:00 | NUR ---
ROUNDS , SLEEPING , CHEST RISE AND FALL EQUALLY , CALL LIGHT WITHIN REACH .
--- NOTE | 2023-06-29 04:00 | NUR ---
SLEEPING , CHEST RISE AND FALL EQUALLY , WILL CONT. TO MONITOR
--- NOTE | 2023-06-29 05:00 | NUR ---
SLEEPING , BUT EASILY AROUSABLE BY SOUNDS AND TOUCH , WILL CONT. TO MONITOR , CALL LIGHT WITHIN REACH .
--- NOTE | 2023-06-29 05:50 | NUR ---
PT . SHOWS AGITATIONS , FOLDING THE BLANKET REPEATEDLY , AND REMOVE PILLOWCASE REPEATEDLY , BP 134/ 85 , HR 84 , RR18 , O2 SAT 97 5 - WILL MEDICATE . Addendum: 06/29/23 at 0740 by Nelli Martinez RN THE NUMBER 5 IN THE ABOVE NURSE'S NOTE IS AN ERROR ENTRY , INSTEAD OF % - ИРИНА
[2023-06-29] MEDS: LORazepam 0.5 MG TAB PO PRN (05:58)
[2023-06-29] MEDS: PIPERACILLIN/TAZOBACTAM 3.375 GM in DEXTROSE 5% 50 ML IV SCH ×3 (05:59→19:02)
--- NOTE | 2023-06-29 06:00 | NUR ---
C/O NAUSEA - WILL MEDICATE , WILL CONT. TO MONITOR , CALL LIGHT WITHIN REACH .
[2023-06-29] MEDS: ONDANSETRON 4 MG/2 ML VIAL IM/IVP PRN (06:10)
[2023-06-29 06:14] LABS: BASOPHILS % (AUTO) 0.3 % (0.0-2.0); EOSINOPHILS % (AUTO) 0.2 % (0.0-4.0); HEMATOCRIT 35.4 % (36-48); HEMOGLOBIN 11.6 g/dL (12.0-16.0); LYMPHOCYTES # (AUTO) 2.2 K/uL (2.5-16.5); LYMPHOCYTES % (AUTO) 18.3 % (20.5-51.1); MEAN CORPUSCULAR HEMOGLOBIN 25 pg (27-31); MEAN CORPUSCULAR HGB CONC 33 g/dL (33-37); MEAN CORPUSCULAR VOLUME 75.6 fL (80-94); MONOCYTES # (AUTO) 0.7 K/uL (0.8-1.0); MONOCYTES % (AUTO) 6.2 % (1.7-9.3); PLATELET COUNT (AUTO) 312 K/uL (140-450); RED BLOOD CELL COUNT(AUTO) 4.68 MIL/uL (4.20-5.40)
[2023-06-29] MEDS: INSULIN LISPRO SLIDING SCALE 100 UNITS/ML VIAL SUBQ PRN ×2 (06:25→22:05)
[2023-06-29] MEDS: BLOOD GLUCOSE MONITORING 1 DEV DEV FS SCH ×4 (06:30→22:00)
--- NOTE | 2023-06-29 07:26 | NUR ---
ENDORSED PT FOR CONT. OF CARE .
--- NOTE | 2023-06-29 07:27 | NUR ---
RECEIVED BEDSIDE REPORT FROM NIGHTSHIFT NURSE. PT IS ASLEEP IN BED, WOKE TO NAME AND TOUCH. PT IS STABLE, NO SIGNS OF DISTRESS, NO REPORTS OF PAIN/DISCOMFORT. PT CALL LIGHT IS WITHIN REACH. NO FURTHER NEEDS ARE TO BE MET AT THIS TIME. WILL CONTINUE WITH PT CARE.
[2023-06-29 07:43] LABS: ALBUMIN 3.5 g/dL (3.4-5.0); ANION GAP 16.5 (8-16); CARBON DIOXIDE 31.1 mmol/L (21-32); CREATININE 1.7 mg/dL (0.6-1.3); POTASSIUM 3.6 mmol/L (3.5-5.1); TOTAL BILIRUBIN 0.5 mg/dL (0.0-1.0)
[2023-06-29 08:00] VITALS: BP 90/42; PULSE 72; RESP 18; TEMP 97.2; O2SAT 100; O2SAT 99
[2023-06-29] MEDS: NACL 0.9% 1,000 ML IV SCH (09:05)
[2023-06-29] MEDS: PANTOPRAZOLE 40 MG INJ VIAL IVP SCH (09:10)
[2023-06-29] MEDS: GABAPENTIN 300 MG CAP PO SCH ×3 (09:56→17:00)
[2023-06-29] MEDS: lisinopriL 20 MG TAB PO SCH (09:56)
[2023-06-29] MEDS: LINEZOLID 600 MG TAB PO SCH ×2 (09:56→21:58)
[2023-06-29] MEDS: ESCITALOPRAM 20 MG TAB PO SCH (09:56)
[2023-06-29] MEDS: GAUZE TP SCH (13:00)
[2023-06-29 16:00] VITALS: BP 84/50; PULSE 75; RESP 16; TEMP 97; O2SAT 97
--- NOTE | 2023-06-29 19:07 | NUR ---
PT REFUSED MEDS AND BLOOD SUGAR CHECK TODAY. PT STATES IS NAUSEAS AND ANXIOUS, REQUESTS NAUSEA AND ANXIETY MED. ASSESSED PT VITALS, (BP, HR, RR - ALL TOO LOW FOR ADMIN). EDUCATED PT ON RISK OF BUSINESS LAW TEACHER. PT UNDERSTOOD AND RETURNED TO SLEEP. ENDORSED TO NIGHTSHIFT NURSE FOR CONTINUITY OF CARE. PT ASLEEP IN BED, NO SIGNS OF DISTRESS. PT STABLE WITH ABX RUNNING. CALL LIGHT IS WITHIN REACH.
[2023-06-29 20:00] VITALS: BP 95/59; PULSE 69; RESP 18; TEMP 97.6; O2SAT 97
--- NOTE | 2023-06-29 22:05 | NUR ---
BLOOD SUGAR CHECKED = 294 = 6 UNITS OF HUMALOG INSULIN ADMINISTERED. PT IS ON STABLE CONDITION.
[2023-06-30] MEDS: PIPERACILLIN/TAZOBACTAM 3.375 GM in DEXTROSE 5% 50 ML IV SCH ×2 (00:42→06:09)
--- NOTE | 2023-06-30 03:32 | NUR ---
PT SLEEPING WELL, NO SOB OR DISTRESS
[2023-06-30] MEDS: NACL 0.9% 1,000 ML IV SCH ×2 (03:37→12:47)
--- NOTE | 2023-06-30 06:15 | NUR ---
PT BLOOD PRESSURE CHECKED 78/48; 71/46; 77/43, PT RESPONSIVE VERBALLY. REPORTED TO DR. COHEN.
--- NOTE | 2023-06-30 06:30 | NUR ---
DR. COHEN ORDER NORMAL SALINE BOLUS X 1.
[2023-06-30 06:36] LABS: BASOPHILS % (AUTO) 0.5 % (0.0-2.0); EOSINOPHILS # (AUTO) 0.1 K/uL (0-0.4); EOSINOPHILS % (AUTO) 0.9 % (0.0-4.0); HEMATOCRIT 35.7 % (36-48); HEMOGLOBIN 11.7 g/dL (12.0-16.0); LYMPHOCYTES % (AUTO) 30.2 % (20.5-51.1); MEAN CORPUSCULAR HEMOGLOBIN 24 pg (27-31); MEAN CORPUSCULAR HGB CONC 33 g/dL (33-37); MEAN CORPUSCULAR VOLUME 74.2 fL (80-94); MONOCYTES # (AUTO) 0.7 K/uL (0.8-1.0); MONOCYTES % (AUTO) 7.4 % (1.7-9.3); PLATELET COUNT (AUTO) 286 K/uL (140-450); RED BLOOD CELL COUNT(AUTO) 4.81 MIL/uL (4.20-5.40); RED CELL DISTRIBUTION WIDTH 18.8 % (11.6-13.7); WHITE BLOOD COUNT (AUTO) 9.8 K/uL (4.8-10.8)
[2023-06-30] MEDS: BLOOD GLUCOSE MONITORING 1 DEV DEV FS SCH ×4 (06:55→21:02)
[2023-06-30] MEDS: INSULIN LISPRO SLIDING SCALE 100 UNITS/ML VIAL SUBQ PRN ×4 (06:57→21:06)
--- NOTE | 2023-06-30 06:57 | NUR ---
BLOOD SUGAR CHECKED = 208 = 4 UNITS [id number] INSULIN ADMINISTERED.
[2023-06-30 07:06] LABS: ALBUMIN 3.3 g/dL (3.4-5.0); CARBON DIOXIDE 29.2 mmol/L (21-32); CREATININE 2.6 mg/dL (0.6-1.3); POTASSIUM 3.2 mmol/L (3.5-5.1); TOTAL BILIRUBIN 0.5 mg/dL (0.0-1.0)
[2023-06-30] MEDS ORDERED: NACL 0.9% 1,000 ML IV ONE (07:15)
--- NOTE | 2023-06-30 07:53 | NUR ---
RECEIVED REPORT FROM LAB, BUN 76, REPORTED TO DR. COHEN. ENDORSED TO DAY SHIFT NURSE FOR FOLLOW UP.
--- NOTE | 2023-06-30 07:55 | NUR ---
RECEIVED BEDSIDE REPORT FROM NIGHT NURSE FOR CONTINUITY OF CARE. PT IS AWAKE, BOLUS ON GOING FOR HYPOTENSION, PT HAS NO SIGNS OF DISTRESS. CALL LIGHT WITHIN REACH.
[2023-06-30 08:00] VITALS: BP 77/49; PULSE 66; RESP 18; TEMP 97.1; O2SAT 97; O2SAT 99
[2023-06-30] MEDS: PANTOPRAZOLE 40 MG INJ VIAL IVP SCH (08:33)
[2023-06-30] MEDS: ESCITALOPRAM 20 MG TAB PO SCH (08:34)
[2023-06-30] MEDS: GABAPENTIN 300 MG CAP PO SCH ×3 (08:34→16:37)
[2023-06-30] MEDS: LINEZOLID 600 MG TAB PO SCH (08:34)
[2023-06-30] MEDS: lisinopriL 20 MG TAB PO SCH (09:00)
[2023-06-30] MEDS ORDERED: POTASSIUM CHLORIDE 40 MEQ, LIDOCAINE 1% 25 MG in NACL 0.9% 250 ML IV SCH (10:00)
--- NOTE | 2023-06-30 10:10 | NUR ---
PT'S ON [place] BP IS 95/55. PT IS ASLEEP, NO SIGNS OF DISTRESS. CALL LIGHT WITHIN REACH.
[2023-06-30] MEDS: GAUZE TP SCH (13:42)
[2023-06-30] MEDS: FLUCONAZOLE 200 MG/NS PREMIX 100 ML IV SCH (15:35)
[2023-06-30 16:00] VITALS: BP 94/57; PULSE 66; RESP 18; TEMP 97.6; O2SAT 97
--- NOTE | 2023-06-30 17:00 | NUR ---
BP 94/57 PT IS STABLE, NO SIGN OF DISTRESS. CALL LIGHT WITHIN REACH.
--- NOTE | 2023-06-30 18:55 | NUR ---
PROVIDED DIET EDUCATION ON LINEZOLID AND WHAT FOODS TO AVOID WITH HANDOUT TO PATIENT.
--- NOTE | 2023-06-30 19:25 | NUR ---
GAVE BEDSIDE REPORT TO SHIRT FOLDER NURSE FOR CONTINUITY OF CARE, PT IS AWAKE, NO SIGN OF DISTRESS. CALL LIGHT WITHIN REACH.
--- NOTE | 2023-06-30 19:26 | NUR ---
RECEIVED PT ENDORSEMENT FROM DAY SHIFT NURSE. PT IS AWAKE, ALERT AND VERBALLY RESPONSIVE. IV SITE, MID LINE 2 LUMENS, IS ON LEFT UPPER ARM WITH NORMAL SALINE INFUSING WELL AT 100ML/HR. RESPIRATION NORMAL WITH NO SOB OR DISTRESS.
[2023-06-30 20:00] VITALS: BP 106/62; PULSE 65; RESP 18; TEMP 97; TEMP 97.7; O2SAT 95
--- NOTE | 2023-06-30 20:45 | NUR ---
DR. BAILON CAME AND CHANGE DRESSINGS. WOUND CLEAN AND DRY. NO NEW ORDER AT THIS TIME. MD STATED TO CONTINUE CURRENT ANTIBIOTICS. PT RESPONSIVE.
[2023-06-30] MEDS: MEROPENEM 500 MG in NACL 0.9% 50 ML IV SCH (20:51)
[2023-06-30] MEDS: LINEZOLID 600MG PREMIX 300 ML IV SCH (20:57)
--- NOTE | 2023-06-30 21:06 | NUR ---
BLOOD SUGAR CHECKED = 190 = 2 UNITS OF HUMALOG INSULIN ADMINISTERED. PT IS ON STABLE CONDITION.
--- NOTE | 2023-07-01 00:30 | NUR ---
PT VERBALIZED THAT SHE DID NOT HAVE APPETITE AND DID NOT TAKE HER DINNER. OFFER SANDWICH TO PT, PT REFUSED ANY SANDWICH. PT TOOK SUGAR FREE JELLO.
--- NOTE | 2023-07-01 01:00 | NUR ---
PT ATE BANANA AND APPLESAUCE.
[2023-07-01] MEDS: NACL 0.9% 1,000 ML IV SCH ×3 (01:12→14:58)
--- NOTE | 2023-07-01 01:15 | NUR ---
PT REQUEST ANOTHER BANANA AND ATE WITH APPLESAUCE.
--- NOTE | 2023-07-01 01:20 | NUR ---
PT COMPLAINTS OF DIZZY AND FEELING WEAK. VITAL SIGNS CHECKED = B/P108/53; P67; O2 SAT96% ROOM AIR; T97.5; R17.
[2023-07-01] MEDS: HYDROcodone/APAP 5/325 MG 1 TAB TAB PO PRN (04:57)
--- NOTE | 2023-07-01 04:57 | NUR ---
PT COMPLAINTS OF RIGHT FOOT PAIN 07/11, PAIN MEDICATION NORCO ADMINISTERED ORDER.
--- NOTE | 2023-07-01 05:57 | NUR ---
REASSESSMENT OF PAIN. IT IS EFFECTIVE, PT IS ASLEEP, NO FACIAL GRIMACING.
[2023-07-01] MEDS: BLOOD GLUCOSE MONITORING 1 DEV DEV FS SCH ×4 (06:35→21:14)
[2023-07-01] MEDS: INSULIN LISPRO SLIDING SCALE 100 UNITS/ML VIAL SUBQ PRN ×3 (06:39→21:16)
--- NOTE | 2023-07-01 06:39 | NUR ---
BLOOD SUGAR CHECKED = 239 = 4 UNITS HUMALOG INSULIN ADMINISTERED. PT IS ON STABLE CONDITION. NO SOB OR DISTRESS.
--- NOTE | 2023-07-01 07:20 | NUR ---
RECEIVED BEDSIDE REPORT FROM SOLAR THERMAL INSTALLER NURSE FOR CONTINUITY OF CARE. PT IS AWAKE, SITTING ON HER BED. NO SIGN OF DISTRESS. CALL LIGHT WITHIN REACH.
--- NOTE | 2023-07-01 07:21 | NUR ---
PT IS ON STABLE CONDITION. SAFETY MEASURES ARE IN PLACE. ENDORSE TO DAY SHIFT NURSE.
[2023-07-01 07:40] LABS: APPEARANCE,URINE CLEAR (CLEAR); BILIRUBIN,URINE NEGATIVE (NEGATIVE); BLOOD, URINE NEGATIVE (NEGATIVE); COLOR,URINE YELLOW (YELLOW); LEUKOCYTE ESTERASE ,URINE TRACE (NEGATIVE); NITRITE, URINE NEGATIVE (NEGATIVE); UGLUCOSE 2+ (NEGATIVE)
[2023-07-01 08:00] VITALS: BP 124/75; PULSE 68; RESP 18; TEMP 97.5; O2SAT 95; O2SAT 99
[2023-07-01 08:06] LABS: RBC,URINE 0-5 /HPF (0-5)
[2023-07-01 08:44] LABS: URINE TOTAL PROTEIN 60.9 mg/dL (0-12)
[2023-07-01] MEDS: LINEZOLID 600MG PREMIX 300 ML IV SCH ×2 (09:48→21:09)
[2023-07-01] MEDS: GABAPENTIN 300 MG CAP PO SCH ×3 (09:49→16:55)
[2023-07-01] MEDS: ESCITALOPRAM 20 MG TAB PO SCH (09:50)
[2023-07-01] MEDS: PANTOPRAZOLE 40 MG INJ VIAL IVP SCH (09:51)
--- NOTE | 2023-07-01 10:54 | NUR ---
DC PLANNIN YRS OLD HOMELESS FEMALE PATIENT WAS ADMITTED FROM ER WITH A DX OF OSTEOMYELITIS. PATIENT RECENTLY SIGNED AMA FROM [facility]. . PATIENT HAS A HX OF OSTEOMYELITIS OF RIGHT FIRST METATARSAL. X-RAY OF RIGHT FOOT SHOWED ADVANCED OSTEOMYELITIS. DR MELLISSA PEREZ PERFORMED RIGHT FOOT TRANSMETATARSAL AMPUTATION. ADMINISTERED IVF, IV ABX MEROPENEM, FLUCONAZOLE AND ZYVOX CONTINUED HOME MEDS. DC PLAN TO GO TO SNF FOR IV ABBX. CM TO FOLLOW Addendum: 07/02/23 at 1531 by Ofe Nunez RN DC PLANNING: RECEIVED A CALL FROM [facility] ANGIE BABIND [phone] STATED DIDN'T RECEIVE ANY CLINICALS FROM THE JUNE 28 REQUESTING THE CLINICALS TO BE FAXED. ALL PAPERWORK FAXED TO [phone] AND SHE PROVIDE THE AUTH # [id number]. PER RITCHIE TO CONTACT THE DIFFICULT PLACEMENT DEPT # [phone]. CM TO FOLLOW Addendum: 07/03/23 at 1138 by Ofe Nunez RN DC PLANNING: [facility] SPOKE WITH MARIA EUGENIA FARRIS ACCEPTED PATIENT. CALLED [facility] [phone] SPOKE WITH PAT FARRIS TO FAX IT TO [phone]. ANGIE TO FOLLOW Addendum: 07/03/23 at 1406 by Ofe Nunez RN DC PLANNING: RECEIVED A CALL FROM [facility] SPOKE WITH CALISTA ADAMS PROVIDE THE AUTH# [id number]. KELLY RUIZ ACCEPTED PATIENT CAN GO TO ROOM 118B. TRANSPORT ARRANGED WITH [facility] [phone] DIRECTOR VISUAL TIME 6 -7PM NOTIFIED SIGIFREDO ALLEN CM TO FOLLOW
[2023-07-01] MEDS: MEROPENEM 500 MG in NACL 0.9% 50 ML IV SCH ×2 (11:07→21:05)
--- NOTE | 2023-07-01 12:30 | NUR ---
PT IS AWAKE, WATCHING TV, SITTING ON THE BED, VERY AMICABLE. NO SIGNS OF DISTRESS, CALL LIGHT WITHIN REACH.
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
[2023-07-01] MEDS: GAUZE TP SCH (13:00)
[2023-07-01] MEDS: FLUCONAZOLE 200 MG/NS PREMIX 100 ML IV SCH (14:59)
[2023-07-01 16:00] VITALS: BP 128/83; PULSE 68; RESP 18; TEMP 96.9; O2SAT 96
[2023-07-01 17:31] LABS: ALBUMIN 2.9 g/dL (3.4-5.0); ANION GAP 10.7 (8-16); CARBON DIOXIDE 28.8 mmol/L (21-32); CREATININE 0.9 mg/dL (0.6-1.3); POTASSIUM 4.5 mmol/L (3.5-5.1); TOTAL BILIRUBIN 0.2 mg/dL (0.0-1.0)
[2023-07-01] MEDS ORDERED: traZODone 50 MG TAB PO PRN (18:30)
--- NOTE | 2023-07-01 19:20 | NUR ---
RECEIVED PT REPORT FROM DAY SHIFT NURSE. PT IS ON BED RESTING. IV SITE MIDLINE 2 LUMENS IS ON LEFT UPPER ARM, INTACT AND PATENT. IV FLUID NORMAL SALINE INFUSING WELL AT 100ML/HR. IV SITE IS NORMAL, NO SIGN/SYMPTOM OF INFECTION.
[2023-07-01 20:00] VITALS: BP 149/85; PULSE 69; RESP 18; TEMP 98; O2SAT 98
--- NOTE | 2023-07-01 21:16 | NUR ---
BLOOD SUGAR CHECKED = 185 = 2 UNITS HUMALOG INSULIN ADMINISTERED. PT IS ON STABLE CONDITION.
--- NOTE | 2023-07-02 02:37 | NUR ---
PT COMPLAINTS OF UNABLE TO GO BACK TO SLEEP, PT REQUESTING FOR SLEEPING PILL.
[2023-07-02 04:00] VITALS: BP 159/77; PULSE 70; RESP 18; TEMP 97.8; O2SAT 96
[2023-07-02] MEDS: HYDROcodone/APAP 5/325 MG 1 TAB TAB PO PRN (05:27)
--- NOTE | 2023-07-02 05:27 | NUR ---
PT COMPLAINTS OF RIGHT FOOT PAIN /, PAIN MEDICATION NORCO ADMINISTERED.
[2023-07-02] MEDS: NACL 0.9% 1,000 ML IV SCH ×2 (05:35→18:21)
[2023-07-02 06:41] LABS: BASOPHILS % (AUTO) 0.5 % (0.0-2.0); EOSINOPHILS # (AUTO) 0.1 K/uL (0-0.4); EOSINOPHILS % (AUTO) 1.4 % (0.0-4.0); HEMOGLOBIN 9.7 g/dL (12.0-16.0); LYMPHOCYTES # (AUTO) 1.8 K/uL (2.5-16.5); LYMPHOCYTES % (AUTO) 23.7 % (20.5-51.1); MEAN CORPUSCULAR HEMOGLOBIN 24 pg (27-31); MEAN CORPUSCULAR HGB CONC 32 g/dL (33-37); MEAN CORPUSCULAR VOLUME 75.4 fL (80-94); MONOCYTES # (AUTO) 0.5 K/uL (0.8-1.0); MONOCYTES % (AUTO) 6.4 % (1.7-9.3); NEUTROPHILS # (AUTO) 5.2 K/uL (1.8-7.7); PLATELET COUNT (AUTO) 239 K/uL (140-450); RED BLOOD CELL COUNT(AUTO) 3.98 MIL/uL (4.20-5.40); RED CELL DISTRIBUTION WIDTH 18.1 % (11.6-13.7); WHITE BLOOD COUNT (AUTO) 7.7 K/uL (4.8-10.8)
[2023-07-02 06:59] LABS: ALBUMIN 2.9 g/dL (3.4-5.0); ANION GAP 12.7 (8-16); CREATININE 0.7 mg/dL (0.6-1.3); POTASSIUM 4.7 mmol/L (3.5-5.1); TOTAL BILIRUBIN 0.2 mg/dL (0.0-1.0)
--- NOTE | 2023-07-02 07:00 | NUR ---
RECEIVED PT FROM MANAGER BEHAVIORAL FOR CONTINUITY OF CARE. ALERT AND ORIENTED X 4. RESP. EVEN UNLABORED. MIDLINE INTACT TO RADHA WITH DOUBLE LUMEN. DRESSING INTACT. SURGICAL WOUND TO RT FOOT. DRESSING INTACT. NO C/O PAIN OR DISCOMFORT. CALL LIGHT KEPT WITHIN REACH. WILL CONTINUE TO MONITOR.
[2023-07-02] MEDS: BLOOD GLUCOSE MONITORING 1 DEV DEV FS SCH ×4 (07:07→22:00)
[2023-07-02] MEDS: INSULIN LISPRO SLIDING SCALE 100 UNITS/ML VIAL SUBQ PRN ×3 (07:12→18:25)
[2023-07-02 08:00] VITALS: BP 143/85; PULSE 68; PULSE 71; RESP 18; TEMP 97.5; TEMP 97.9; O2SAT 97
--- NOTE | 2023-07-02 08:20 | NUR ---
CLARIFIED ORDER REGARDING STOOL SPECIMEN ODER FOR C-DIFF. PT HAS FORMED BM PER CERTIFIED CORPORATE TRAVEL EXECUTIVE YESTERDAY 07/01/23. PER DR. PABLO CONTINUE TO COLLECT SPECIMEN.
--- NOTE | 2023-07-02 08:40 | NUR ---
REPORT GIVEN TO DAVID COCHRAN FOR CONTINUITY OF CARE. REMAINS STABLE.
[2023-07-02] MEDS ORDERED: traZODone 50 MG TAB PO PRN (09:19)
[2023-07-02] MEDS: MEROPENEM 500 MG in NACL 0.9% 50 ML IV SCH ×2 (10:03→22:06)
[2023-07-02] MEDS: ESCITALOPRAM 20 MG TAB PO SCH (10:06)
[2023-07-02] MEDS: LINEZOLID 600MG PREMIX 300 ML IV SCH ×2 (10:06→22:07)
[2023-07-02] MEDS: GABAPENTIN 300 MG CAP PO SCH ×3 (10:06→18:21)
[2023-07-02] MEDS ORDERED: ESCI20TA49 PO (11:00)
[2023-07-02] MEDS ORDERED: GABA300C55 PO (11:00)
[2023-07-02] MEDS ORDERED: TRAZ-466 PO (11:00)
--- NOTE | 2023-07-02 11:35 | NUR ---
Bill Hiker: Met with patient at bedside to discuss appropriate discharge planning. The patient remains on isolation and in need of care at discharge. Per patient, she has no family that she can go to. She does not have a sturdy support system in place. I discussed the barriers of discharge and explained why the SNFs are not accepting at this time. Patient continues to plead for [facility]. The patient is aware that efforts continue to be made for placement.
[2023-07-02] MEDS: GAUZE TP SCH (13:00)
[2023-07-02 16:00] VITALS: BP 131/73; PULSE 66; RESP 18; TEMP 97.9; O2SAT 97
[2023-07-02] MEDS: FLUCONAZOLE 200 MG/NS PREMIX 100 ML IV SCH (16:10)
--- NOTE | 2023-07-02 18:04 | NUR ---
stool is formed, cannot collect for c.diff
[2023-07-02 20:00] VITALS: BP 157/76; PULSE 75; RESP 18; TEMP 98.2; O2SAT 96
[2023-07-02] MEDS ORDERED: MEROPENEM 500 MG VIAL IV ONE (21:55)
--- NOTE | 2023-07-02 22:00 | NUR ---
BLOOD SUGAR CHECKED = 120, NO SLIDING SCALE COVERAGE. NO INSULIN INJECTION.
--- NOTE | 2023-07-03 00:55 | NUR ---
MEROPENEM 500MG 1 VIAL PULLED OUT FROM [facility], NOT ADMINISTERED DUE TO FOUND MEROPENEM 500MG DOSE FROM PHARMACY PREPARED ON DIFFERENT BIN. MEROPENEM 500MG VIAL FROM [facility] WAS RETURNED BACK INTO [facility].
[2023-07-03] MEDS: BLOOD GLUCOSE MONITORING 1 DEV DEV FS SCH ×3 (06:40→17:20)
[2023-07-03] MEDS: NACL 0.9% 1,000 ML IV SCH ×2 (06:40→10:47)
[2023-07-03] MEDS: INSULIN LISPRO SLIDING SCALE 100 UNITS/ML VIAL SUBQ PRN ×3 (06:50→17:21)
[2023-07-03 07:14] LABS: BASOPHILS % (AUTO) 0.5 % (0.0-2.0); EOSINOPHILS # (AUTO) 0.1 K/uL (0-0.4); HEMATOCRIT 30.5 % (36-48); LYMPHOCYTES # (AUTO) 1.8 K/uL (2.5-16.5); LYMPHOCYTES % (AUTO) 27.6 % (20.5-51.1); MEAN CORPUSCULAR HEMOGLOBIN 25 pg (27-31); MEAN CORPUSCULAR HGB CONC 33 g/dL (33-37); MONOCYTES # (AUTO) 0.4 K/uL (0.8-1.0); MONOCYTES % (AUTO) 6.7 % (1.7-9.3); NEUTROPHILS # (AUTO) 4.2 K/uL (1.8-7.7); NEUTROPHILS % (AUTO) 63.2 % (42.2-75.2); PLATELET COUNT (AUTO) 228 K/uL (140-450); RED BLOOD CELL COUNT(AUTO) 4.02 MIL/uL (4.20-5.40); RED CELL DISTRIBUTION WIDTH 18.5 % (11.6-13.7); WHITE BLOOD COUNT (AUTO) 6.7 K/uL (4.8-10.8)
[2023-07-03 07:18] LABS: ALBUMIN 2.7 g/dL (3.4-5.0); ANION GAP 11.7 (8-16); CARBON DIOXIDE 27.8 mmol/L (21-32); CREATININE 0.7 mg/dL (0.6-1.3); POTASSIUM 4.5 mmol/L (3.5-5.1); TOTAL BILIRUBIN 0.2 mg/dL (0.0-1.0)
--- NOTE | 2023-07-03 07:20 | NUR ---
RECEIVED REPORT FROM VISUAL SUPERVISOR NURSE FOR CONTINUITY OF CARE. PT IS AWAKE, NO SIGN OF DISTRESS, CALL LIGHT WITHIN REACH.
[2023-07-03 08:00] VITALS: BP 151/83; PULSE 64; RESP 18; TEMP 98.3; O2SAT 96
[2023-07-03] MEDS ORDERED: PENICILLIN G BENZATHINE L-A 1.2 MU/2 ML SYR IM SCH ×2 (09:00)
[2023-07-03] MEDS ORDERED: LACTOBACILLUS RHAMNOSUS GG 1 EACH CAP PO SCH (09:00)
[2023-07-03] MEDS: ESCITALOPRAM 20 MG TAB PO SCH (10:35)
[2023-07-03] MEDS: GABAPENTIN 300 MG CAP PO SCH ×3 (10:36→17:16)
[2023-07-03] MEDS: LINEZOLID 600MG PREMIX 300 ML IV SCH (10:38)
[2023-07-03] MEDS ORDERED: LINE600T4 PO (10:49)
[2023-07-03] MEDS ORDERED: CIPR500T4 PO (10:50)
[2023-07-03] MEDS: MEROPENEM 500 MG in NACL 0.9% 50 ML IV SCH (12:12)
[2023-07-03] MEDS: GAUZE TP SCH (13:00)
--- NOTE | 2023-07-03 13:14 | NUR ---
07/03/23 RD INITIAL ASSESSMENT COMPLETED PLEASE REFER TO NUTRITION ASSESSMENT UNDER CARE ACTIVITY FOR ESTIMATED NUTRITIONAL NEEDS. 1. CONTINUE CCHO 60 GM DIET TOLERATED 2. RD RECOMMENDS PROSOURCE BID FOR WOUND WHICH WILL PROVIDE 120 CALORIES AND 30 GRAMS OF PROTEIN. 3. RD RECOMMENDS GLUCERNA BID SINCE PATIENT REPORTS HAVING A LOW APPETITE. THIS WILL PROVIDE 440 CALORIES AND 20 GRAMS OF PROTEIN. 4. RD TO FOLLOW-UP 7 DAYS, LOW RISK OREN QUIROGA RD
[2023-07-03] MEDS: FLUCONAZOLE 200 MG/NS PREMIX 100 ML IV SCH (15:00)
[2023-07-03 16:00] VITALS: BP 150/86; PULSE 73; RESP 16; TEMP 97.4; O2SAT 99
--- NOTE | 2023-07-03 17:01 | NUR ---
CALLED [facility] AND TALKED TO SARAH FOR TRANSFER OF CARE. PT REFUSED PHOTO ON HER WOUND BUT ALLOWED ME TO CLEAN AND PACK IT. MID LINE REMOVED AND COMPLETE, HER HOME ABX ARE ORAL. INFORMED [employer]ELTING SUPERVISOR. PT IS STABLE, ID BAND REMOVED.
--- NOTE | 2023-07-03 19:15 | NUR ---
ENDORSED TO OPTICAL ENGINEER, PT AWAITING FOR TRANSPORT.
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
--- NOTE | 2023-07-03 19:45 | NUR ---
PT WAS PICKED UP BY NII LANG (FAN) AND WILL GO TO [facility] AT ROOM 118b. ALL BELONGINGS WAS WITH THE PT AND ALL DOCUMENT WAS SIGNED AND WAS GIVEN TO FAN (TRANSPORTER).
[2023-07-10] MEDS ORDERED: PENICILLIN G BENZATHINE L-A 1.2 MU/2 ML SYR IM ONE (09:00)
== END 2023-07-03 19:05 | DRG 349 ==
LOC: MED 06:40 → MMU 08:59 → MTU 10:05
PROVIDERS: ADMIT Student in an Organized Health Care Education/Training Program; ATTEND Student in an Organized Health Care Education/Training Program
PROC: 05HY33Z Insertion of Infusion Device into Upper Vein, Percutaneous Approach (ICD-10-PCS; principal; 2023-06-28)
PROC: B54NZZA Ultrasonography of Left Upper Extremity Veins, Guidance (ICD-10-PCS; 2023-06-28)
DX: T87.43 Infection of amputation stump, right lower extremity (principal); N17.0 Acute kidney failure with tubular necrosis; R65.21 Severe sepsis with septic shock; A41.9 Sepsis, unspecified organism; E83.51 Hypocalcemia; E87.1 Hypo-osmolality and hyponatremia; L03.115 Cellulitis of right lower limb; M86.8X7 Other osteomyelitis, ankle and foot; E11.51 Type 2 diabetes mellitus with diabetic peripheral angiopathy without gangrene; E11.69 Type 2 diabetes mellitus with other specified complication; E88.09 Other disorders of plasma-protein metabolism, not elsewhere classified; Z20.822 Contact with and (suspected) exposure to COVID-19; I10 Essential (primary) hypertension; F32.A Depression, unspecified; E87.6 Hypokalemia; Y83.5 Amputation of limb(s) as the cause of abnormal reaction of the patient, or of later complication, without mention of misadventure at the time of the procedure; Y92.89 Other specified places as the place of occurrence of the external cause; Z85.118 Personal history of other malignant neoplasm of bronchus and lung; I69.320 Aphasia following cerebral infarction
CPT/HCPCS: 36415; 71045; 80048; 80053; 80305; 81001; 82570; 82948; 84300; 84703; 85025; 86592; 87040; 87081; 87635-QW; 96365; 96375; 97112; 97530; 99285; C9113; J0561; J1450; J1815; J2001; J2020; J2185; J2270; J2405; J2543; J3480; J7030; J7060; Q0092